=== PATIENT | female | born 1965 | race Caucasian/White ===

== ENCOUNTER 2022-04-28 11:15 | Outpatient (CLI) | payer OTHER, SELFPAY ==
--- NOTE | 2022-04-28 11:30 | CRLHL7_ITS ---
For Patients: As a result of the Century Cures Act, medical imaging exams and procedure reports are released immediately into your electronic medical record. You may view this report before your referring provider. If you have questions, please contact your health care provider. BILATERAL MAMMOGRAM WITH COMPUTER-AIDED DETECTION AND TOMOSYNTHESIS TECHNIQUE: CC and MLO views were obtained. These mammographic images have been obtained using full-field digital technique. These mammographic images were interpreted with the benefit of computer-aided detection. Breast Tomosynthesis was used in this interpretation. COMPARISON FILM: 04/11/2021, 04/08/2020, 02/20/2019. FINDINGS: There are scattered areas of fibroglandular density IMPRESSION: There is no radiographic evidence for malignancy. ASSESSMENT: BI-RADS Category 1: Negative RECOMMENDATION: Routine screening mammogram in 1 year. A lay language report of this examination will be provided to the patient. Elkin Morse M.D. Diagnostic Radiologist [email or web address] GHISLAINE/Dictated by: Elkin Morse MD @ 05/01/2022 8:56:00 AM (Electronically Signed)
== END 2022-04-28 11:16 | disposition home or self-care (01) ==
LOC: MAMMO 11:17
PROVIDERS: PCP Family Medicine; Visit Provider Family Medicine
DX: Z12.31 Encounter for screening mammogram for malignant neoplasm of breast (principal)
CPT/HCPCS: 77063; 77067

== ENCOUNTER 2022-06-13 08:02 | Outpatient (CLI) | payer OTHER, SELFPAY ==
[2022-06-13 14:29] LABS: Ferritin* 82.2 ng/mL (11.1-264.0)
[2022-06-13 14:32] LABS: Chloride* 102 mmol/L (96-114); Potassium* 4.5 mmol/L (3.6-5.1); Sodium* 139 mmol/L (135-149)
[2022-06-13 14:34] LABS: Estimated Glomerular Filt Rate 66 ml/min
[2022-06-13 14:35] LABS: Blood Urea Nitrogen* 11 mg/dL (7-30); Calcium* 9.2 mg/dL (8.4-10.6); Carbon Dioxide* 28 mmol/L (20-32); Glucose* 87 mg/dL (60-115)
== END 2022-06-13 08:03 | disposition home or self-care (01) ==
PROVIDERS: PCP Family Medicine; Visit Provider Family Medicine
DX: Z01.419 Encounter for gynecological examination (general) (routine) without abnormal findings (principal); I10 Essential (primary) hypertension; D75.1 Secondary polycythemia
CPT/HCPCS: 80048; 82728

== ENCOUNTER 2023-05-01 16:15 | Outpatient (CLI) | payer OTHER, SELFPAY ==
--- NOTE | 2023-05-01 14:00 | CRLHL7_ITS ---
For Patients: As a result of the Century Cures Act, medical imaging exams and procedure reports are released immediately into your electronic medical record. You may view this report before your referring provider. If you have questions, please contact your health care provider. BILATERAL SCREENING MAMMOGRAM WITH COMPUTER-AIDED DETECTION AND TOMOSYNTHESIS TECHNIQUE: CC and MLO views were obtained. These mammographic images have been obtained using full-field digital technique. These mammographic images were interpreted with the benefit of computer-aided detection. Breast tomosynthesis was used in this interpretation. COMPARISON FILM: 04/28/22, 04/11/21, 04/08/20. FINDINGS: The breasts are heterogeneously dense, which may obscure small masses. IMPRESSION: There is no radiographic evidence for malignancy. ASSESSMENT: BI-RADS Category 1: Negative RECOMMENDATION: Routine screening mammogram in 1 year. A lay language report of this examination will be provided to the patient. ELKIN MONTELONGO M.D. Diagnostic Radiologist [email or web address] LIAM/sven Transcribed: 05/02/2023, 6:[address]/Dictated by: Elkin Montelongo MD @ 05/02/2023 12:00:00 PM (Electronically Signed)
--- OUTSIDE RECORDS SUMMARY | 2023-05-01 16:17 | XMS_ITS | Continuity of Care Document ---
Author Name Unknown Organization [facility] Address [address] [place] [address] Phone Care Team Providers Care Roustabout Head Name Role Phone Will Kingston JANE Unavailable Unavailabl e Advance Directives Directive Yes / No Effective Date File Name No Information Encounters Encounter Description Practice Location Reason(s) For Visit Diagnoses Date Provider Providers Copied on Encounter [facility], [address] [place] [address] [place], [place], [id number], [place] tel:[phone] [facility] No Information Will Kingston. [address] [facility] [address] [place], [id number], [place]. tel:[phone] Family History Family Member Type Diagnosis Age At Onset No Information Payers Payer name Insurance type Covered green party ID Authoriza tion(s) No Information Social History Type Description Quantity Date Captured Comments Sex Female Smoking Status No Information Chief Complaint And Reason For Visit No Information Reason For Referral Reason For Referral No Information Plan Of Treatment Date Type Action Status No Information History Of Present Illness Encounter Date Complaint History Of Prese nt Illness No Information Functional Status Date Functional Assessmen t No Information Instructions Date Instruction Additional Infor mation No Information Assessments Type Assessment Date No Information Patient Care Teams Name Effective Dates (start - stop) Status Members No Information
== END 2023-05-01 16:16 | disposition home or self-care (01) ==
LOC: MAMMO 16:15
PROVIDERS: PCP Family Medicine; Visit Provider Family Medicine
DX: Z12.31 Encounter for screening mammogram for malignant neoplasm of breast (principal); R92.2 Inconclusive mammogram
CPT/HCPCS: 77063; 77067

== ENCOUNTER 2023-12-07 08:48 | Outpatient (CLI) | payer OTHER, SELFPAY ==
--- OUTSIDE RECORDS SUMMARY | 2023-12-07 08:51 | XMS_ITS | Clinical Summary ---
Author Name Unknown Organization [facility] Address [place], [place] [address] Care Team Providers Care Typing Secretary Name Role Phone Ben Jones MD Primary Care Provider [phone] Social History Tobacco Use Types Packs/Day Years Used Date Smoking Tobacco: Never Assessed Sex and Gender Information Value Date Recorded Sex Assigned at Not on file Gender Identity Not on file Sexual Orientation Not on file Plan of Treatment Not on file Care Teams Typing Secretary Relationship Specialty Start Date End Date Ben Jones MD PCP - General Family Practice 12/25/14
== END 2023-12-07 08:49 | disposition home or self-care (01) ==
PROVIDERS: PCP Family Medicine; Visit Provider Family Medicine
DX: I10 Essential (primary) hypertension (principal)
CPT/HCPCS: 80048

== ENCOUNTER 2024-05-06 13:58 | Outpatient (CLI) | payer OTHER, SELFPAY ==
--- NOTE | 2024-05-06 14:00 | CRLHL7_ITS ---
For Patients: As a result of the Century Cures Act, medical imaging exams and procedure reports are released immediately into your electronic medical record. You may view this report before your referring provider. If you have questions, please contact your health care provider. BILATERAL DIGITAL SCREENING MAMMOGRAM WITH COMPUTER-AIDED DETECTION AND TOMOSYNTHESIS CLINICAL HISTORY: Routine screening exam. COMPARISON: 05/01/2023, 04/28/2022, 04/11/2021. TECHNIQUE: Digital mammogram in CC and MLO projections including computer-aided detection (CAD). Tomosynthesis was used in this interpretation. BREAST COMPOSITION: There are areas of scattered fibroglandular density. FINDINGS: RIGHT Breast: Focal nodular density lateral RIGHT breast 2 cm from the nipple. LEFT Breast: No suspicious findings. IMPRESSION: RIGHT breast asymmetry/mass. RECOMMENDATIONS: Additional mammographic views of the RIGHT breast including 3D spot compression CC/MLO. RIGHT breast ultrasound may also be required. BI-RADS Category 0: Incomplete: Need Additional Imaging Evaluation and/or Prior Mammograms for Comparison The [facility] will contact the patient for follow-up. A lay language report of this examination will be provided to the patient. Dictated by Elkin Morse MD @ 05/07/2024 9:13:43 AM jj/Dictated by: Elkin Morse MD @ 05/07/2024 9:13:00 AM (Electronically Signed)
--- OUTSIDE RECORDS SUMMARY | 2024-05-06 14:00 | XMS_ITS | Encounter Summary ---
Author Organization [facility] Address [address] [place] [address]. [place] [address] Care Team Providers Care Manual Arts Therapy Teacher Name Role Phone Unavailable Primary Care Provider Unavailabl e Reason for Visit * Auth/Cert (Routine) Specialty Diagnoses / Procedures Referred By Yissel sellers Referred To Contact Surgery Diagnoses Abnormal uterine bleeding Abnormal uterine bleeding [N93.9] Procedures HI LAP, SUPRACERVIAL HYSTERECTOMY W/ TUBE&OV, <250G HI LAP, SUPRACERVIAL HYSTERECTOMY W/ TUBE&OV, >250G HI LAP,VAG HYST,UTERUS 250GMS/<,SALP-OOPH HI LAP,VAG HYST,UTERUS >250GMS,SALP-OOPH HI LAPAROSCOPY W TOT HYSTERECTUTERUS <=250 GRAM W TUBE/OVARY HI LAPAROSCOPY TOT HYSTERECTOMY UTERUS >250 GRAM W TUBE/OVARY HI CYSTOURETHROSCOPY ROBOT ASSISTED LAPAROSCOPIC HYSTERECTOMY, UTEROSACRAL LIGAMENT SUSPENSION, BILATERAL OOPHORECTOMY, CYSTOSCOPY [facility] [address] [place] [address] Referral ID Status Reason Start Date Expiration Date Visits Re quested Visits Authorized [id number] 1 1 Encounter Details Date Type Department Care Team (Late st Contact Info) Description 02/01/2024 7:20 AM CDT - 02/01/2024 10:00 AM CDT [facility] [address] [place] [address] [place] [id number] [place], [place] [id number] ROBOT ASSISTED LAPAROSCOPIC HYSTERECTOMY, BILATERAL OOPHORECTOMY, CYSTOSCOPY, REMOVAL OF BILATERAL TUBAL REMNANTS Surgery Details Date/Time Status Location OR Service Patient Class Case Class Case Type Trauma Case? 02/01/24 7:20 AM Posted [facility] OR [facility] OR Gynecology Same Day Surgery Elective Panel 1 Procedure LRB Anes Op Region Wound Class Comments ROBOT ASSISTED LAPAROSCOPIC HYSTERECTOMY, BILATERAL OOPHORECTOMY, CYSTOSCOPY, REMOVAL OF BILATERAL TUBAL REMNANTS Bilateral General Abdomen II-Clean Contami nated UTEROSACRAL LIGAMENT SUSPENSION N/A General Abdomen II-Clean Contaminated Surgeon Surgeon Role Service Panel Sally Smith MD Primary Gynecology 1 Special Needs 120 mins, robot DOCKS ON THE LEFT documented in this encounter Social History Tobacco Use Types Packs/Day Years Used Date Smoking Tobacco: Every Day Cigarettes 0.5 15 Smokeless Tobacco: Never Tobacco Cessation:Ready to Q uit: Not Asked; Counseling Given: Not Answered Alcohol Use Standard Drinks/Week Comments Yes 10 (1 standard drink = 0.6 oz pu re alcohol) 6/week Adolescent Education Answer Date Record ed Getting School Help Needed Not on file 12/17 Sex and Gender Information Value Date Recorded Sex Assigned at Not on file Gender Identity Not on file Sexual Orientation Not on file documented as of this encounter Last Filed Vital Signs Vital Sign Reading Time Taken Comments Blood Pressure 132/78 02/01/2024 6:16 AM CDT Pulse 71 02/01/2024 6:16 AM CDT Temperature 36.8 ??C (98.3 ??F) 02/01/2024 6:16 AM CD T Respiratory Rate 18 02/01/2024 6:16 AM CDT Oxygen Saturation 98% 02/01/2024 6:16 AM CDT Inhaled Oxygen Concentration - - Weight 93 kg (205 lb) 02/01/2024 6:16 AM CDT Height - - Body Mass Index 36.31 12/18/2023 12:22 PM RADIOLOGIC TECH documented in this encounter Discharge Instructions * Attachments The following attachments cannot be sent through Care Everywhere. * Laparoscopic Hysterectomy: Post-op (French) * (s) After Anesthesia (Sleep Medicine) (French) documented in this encounter Medications at Time of Discharge Medication Sig Dispensed Refills Start Date End Date amLODIPine (NORVASC) 5 MG tablet Take 5 mg by mouth daily Flaxseed, Linseed, (FLAX SEED OIL) 1000 MG capsule Take 1 capsule by mouth daily indapamide (LOZOL) 2.5 MG tablet Take 2.5 mg by mouth every morning KRILL OIL PO lactobacillus rhamnosus, GG, (CULTURELL) capsule Take 1 capsule by mouth 2 times daily losartan (COZAAR) 100 MG tablet Take 100 mg by mouth daily multivitamin w/minerals (THERA-VIT-M) tablet Take 1 tablet by mouth daily ondansetron (ZOFRAN ODT) 4 MG ODT tabIndications:Status post laparoscopic hysterectomy Take 1 tablet (4 mg) by mouth every 8 hours as needed for nausea 4 tablet 02/01/2024 oxyCODONE (ROXICODONE) 5 MG tabletIndications:Status post laparoscopic hysterectomy Take 1-2 tablets (5-10 mg) by mouth every 4 hours as needed for moderate to severe pain 6 tablet 02/01/2024 progesterone (PROMETRIUM) 200 MG capsule Take 200 mg by mouth daily senna-docusate (SENOKOT-S/PERICOLACE) 8.6-50 MG tabletIndications:Status post laparoscopic hysterectomy Take 1-2 tablets by mouth 2 times daily 30 tablet 02/01/2024 Turmeric (QC TUMERIC COMPLEX PO) Vitamin D, Cholecalciferol, 10 MCG (400 UNIT) TABS VITAMIN E CAPS 400 IU ORIndications:Diffuse cystic mastopathy 1 tab po qday 0 0 12/07/1999 documented as of this encounter H&P Notes * Sally Smith MD - 02/01/2024 7:16 AM CDT I have reviewed the surgical (or preoperative) H&P that is linked to this encounter, and examined the patient. 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 Pt here for postop follow up from D&C/H for PMB Large submucosal fibroids were found at the time of surgery and I was only able to resect ~35% of the main fibroid. There was another submucosal fibroid more towards the fundus as well that was unable to be reached due to the size of the anterior fibroid. Pt is having daily bleeding, but it is light. Pathology was negative for malignancy. PMH: Past Medical History: Diagnosis Date Constipation Family history of malignant neoplasm of gastrointestinal tract Hypertension PSH: Past Surgical History: Procedure Laterality Date DILATION AND CURETTAGE, OPERATIVE HYSTEROSCOPY, COMBINED N/A 12/18/2023 Procedure: HYSTEROSCOPY DILATION AND CURETTAGE MYOSURE; Surgeon: Sally Smith MD; Location: [facility] OR SALPINGECTOMY WISDOM TOOTH EXTRACTION [facility] C-SEC ONLY,PREV C-SEC 10/22/1988 Social History: Social History Socioeconomic History Marital status: Spouse name: Not on file Number of children: Not on file Years of education: Not on file Highest education level: Not on file Occupational History Not on file Tobacco Use Smoking status: Every Day Current packs/day: 0.50 Average packs/day: 0.5 packs/day for 15.0 years (7.5 ttl pk-yrs) Types: Cigarettes Smokeless tobacco: Never Substance and Sexual Activity Alcohol use: Yes Alcohol/week: 10.0 standard drinks of alcohol Drug use: No Sexual activity: Yes Partners: Male control/protection: Surgical Comment: vasectomy Other Topics Concern Not on file Social History Narrative Not on file Social Determinants of Health Financial Resource Strain: Not on file Food Insecurity: Not on file Transportation Needs: Not on file Physical Activity: Not on file Stress: Not on file Social Connections: Not on file Interpersonal Safety: Not on file Housing Stability: Not on file Medications: No current facility-administered medications for this encounter. Current Outpatient Medications Medication Sig Dispense Refill amLODIPine (NORVASC) 5 MG tablet Take 5 mg by mouth daily Flaxseed, Linseed, (FLAX SEED OIL) 1000 MG capsule Take 1 capsule by mouth daily indapamide (LOZOL) 2.5 MG tablet Take 2.5 mg by mouth every morning KRILL OIL PO lactobacillus rhamnosus, GG, (CULTURELL) capsule Take 1 capsule by mouth 2 times daily losartan (COZAAR) 100 MG tablet Take 100 mg by mouth daily multivitamin w/minerals (THERA-VIT-M) tablet Take 1 tablet by mouth daily progesterone (PROMETRIUM) 200 MG capsule Take 200 mg by mouth daily Turmeric (QC TUMERIC COMPLEX PO) Vitamin D, Cholecalciferol, 10 MCG (400 UNIT) TABS VITAMIN E CAPS 400 IU OR 1 tab po qday 0 0 Allergies: Allergies Allergen Reactions No Known Allergies Review of Systems Negative except what is stated in the HPI Physical exam: There were no vitals taken for this visit. General Appearance: Alert, appropriate appearance for age. No acute distress, HEENT Exam: Grossly normal. Chest/Respiratory Exam: Normal chest wall and respirations. Clear to auscultation. Cardiovascular Exam: Regular rate and rhythm. S1, S2, no murmur, click, gallop, or rubs., Gastrointestinal Exam: soft, non-tender; bowel sounds normal; no masses, no organomegaly Pelvic Exam Female: deferred to OR Musculoskeletal Exam: Back is straight and non-tender, full ROM of upper and lower extremities., Skin: no rash or abnormalities, Neurologic Exam: Normal gait and speech, no tremor Psychiatric Exam: Alert and oriented, appropriate affect. Ultrasound: Uterus: 11.88 cm x 8.39 cm 8.39 x 8.25 cm, MULTIFIBROID UTERUS, APPEAR TO RANGE FROM INTRAMURAL TO SUBSEROSAL Fibroid 1 3.98 cm Fibroid 2 3.90 cm Fibroid 3 2.85 cm Fibroid 4 1.95 cm Fibroid 5 3.84 cm Endometrium: NOT VISUALIZED DUE TO FIBROIDS, UNABLE TO IDENTIFY INTRACAVITY OR SUBMUCOSAL FIBROID LOCATION. HOWEVER, IT'S HIGHLY LIKELY THERE IS SUBMUCOSAL FIBROIDS RIGHT OVARY - NOT SEEN TA OR TV LEFT OVARY - LIMITED VISUALIZATION TA. ASSESSMENT/PLAN: 1. History of uterine fibroid Notes: Patient continues to have bleeding after D&C due to inability to resect submucosal fibroid completely at the time of surgery. Discussed repeating D&C (although there is a high risk we still would not be able to resect theentire fibroid), IUD (which would be difficult to place due to the irregular cavity), and hysterectomy. Pt decided on hysterectomy for definitive management. -Risks and benefits reviewed. Pt aware ofrisk of bleeding, infection, damage to surrounding organs, and possible need for further surgery. She is accepting of these risks. 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 Pt here for postop follow up from D&C/H for PMB Large submucosal fibroids were found at the time of surgery and I was only able to resect ~35% of the main fibroid. There was another submucosal fibroid more towards the fundus as well that was unable to be reached due to the size of the anterior fibroid. Pt is having daily bleeding, but it is light. Pathology was negative for malignancy. PMH: Past Medical History: Diagnosis Date Constipation Family history of malignant neoplasm of gastrointestinal tract Hypertension PSH: Past Surgical History: Procedure Laterality Date DILATION AND CURETTAGE, OPERATIVE HYSTEROSCOPY, COMBINED N/A 12/18/2023 Procedure: HYSTEROSCOPY DILATION AND CURETTAGE MYOSURE; Surgeon: Sally Smith MD; Location: [facility] OR SALPINGECTOMY WISDOM TOOTH EXTRACTION [facility] C-SEC ONLY,PREV C-SEC 10/22/1988 Social History: Social History Socioeconomic History Marital status: Spouse name: Not on file Number of children: Not on file Years of education: Not on file Highest education level: Not on file Occupational History Not on file Tobacco Use Smoking status: Every Day Current packs/day: 0.50 Average packs/day: 0.5 packs/day for 15.0 years (7.5 ttl pk-yrs) Types: Cigarettes Smokeless tobacco: Never Substance and Sexual Activity Alcohol use: Yes Alcohol/week: 10.0 standard drinks of alcohol Drug use: No Sexual activity: Yes Partners: Male control/protection: Surgical Comment: vasectomy Other Topics Concern Not on file Social History Narrative Not on file Social Determinants of Health Financial Resource Strain: Not on file Food Insecurity: Not on file Transportation Needs: Not on file Physical Activity: Not on file Stress: Not on file Social Connections: Not on file Interpersonal Safety: Not on file Housing Stability: Not on file Medications: No current facility-administered medications for this encounter. Current Outpatient Medications Medication Sig Dispense Refill amLODIPine (NORVASC) 5 MG tablet Take 5 mg by mouth daily Flaxseed, Linseed, (FLAX SEED OIL) 1000 MG capsule Take 1 capsule by mouth daily indapamide (LOZOL) 2.5 MG tablet Take 2.5 mg by mouth every morning KRILL OIL PO lactobacillus rhamnosus, GG, (CULTURELL) capsule Take 1 capsule by mouth 2 times daily losartan (COZAAR) 100 MG tablet Take 100 mg by mouth daily multivitamin w/minerals (THERA-VIT-M) tablet Take 1 tablet by mouth daily progesterone (PROMETRIUM) 200 MG capsule Take 200 mg by mouth daily Turmeric (QC TUMERIC COMPLEX PO) Vitamin D, Cholecalciferol, 10 MCG (400 UNIT) TABS VITAMIN E CAPS 400 IU OR 1 tab po qday 0 0 Allergies: Allergies Allergen Reactions No Known Allergies Review of Systems Negative except what is stated in the HPI Physical exam: There were no vitals taken for this visit. General Appearance: Alert, appropriate appearance for age. No acute distress, HEENT Exam: Grossly normal. Chest/Respiratory Exam: Normal chest wall and respirations. Clear to auscultation. Cardiovascular Exam: Regular rate and rhythm. S1, S2, no murmur, click, gallop, or rubs., Gastrointestinal Exam: soft, non-tender; bowel sounds normal; no masses, no organomegaly Pelvic Exam Female: deferred to OR Musculoskeletal Exam: Back is straight and non-tender, full ROM of upper and lower extremities., Skin: no rash or abnormalities, Neurologic Exam: Normal gait and speech, no tremor Psychiatric Exam: Alert and oriented, appropriate affect. Ultrasound: Uterus: 11.88 cm x 8.39 cm 8.39 x 8.25 cm, MULTIFIBROID UTERUS, APPEAR TO RANGE FROM INTRAMURAL TO SUBSEROSAL Fibroid 1 3.98 cm Fibroid 2 3.90 cm Fibroid 3 2.85 cm Fibroid 4 1.95 cm Fibroid 5 3.84 cm Endometrium: NOT VISUALIZED DUE TO FIBROIDS, UNABLE TO IDENTIFY INTRACAVITY OR SUBMUCOSAL FIBROID LOCATION. HOWEVER, IT'S HIGHLY LIKELY THERE IS SUBMUCOSAL FIBROIDS RIGHT OVARY - NOT SEEN TA OR TV LEFT OVARY - LIMITED VISUALIZATION TA. ASSESSMENT/PLAN: 1. History of uterine fibroid Notes: Patient continues to have bleeding after D&C due to inability to resect submucosal fibroid completely at the time of surgery. Discussed repeating D&C (although there is a high risk we still would not be able to resect theentire fibroid), IUD (which would be difficult to place due to the irregular cavity), and hysterectomy. Pt decided on hysterectomy for definitive management. -Risks and benefits reviewed. Pt aware ofrisk of bleeding, infection, damage to surrounding organs, and possible need for further surgery. She is accepting of these risks. Sally Smith DO [facility] documented in this encounter Miscellaneous Notes * Op Note - Sally Smith MD - 02/01/2024 8:05 AM CDT Images from the original note were not included. OPERATIVE REPORT Name: Jody Ha CSN: [id number] Procedure date: 02/01/2024 PRE-OP DIAGNOSIS: 58 yo F with symptomatic fibroid uterus, postmenopausal bleeding POST-OPERATIVE DIAGNOSIS: Same OPERATION: Robotic Assisted Total laparoscopic hysterectomy, bilateral salpingoophorectomy (tubal remnants from prior tubal surgery), uterosacral ligament suspension, cystoscopy DOOR TO DOOR SALESMAN(S): Leadite Man: Eloina Hernandez, LICHA; Smita Raymond RN Relief Scrub: Laekisha Romero Scrub Person: Madlein Fisher Toll Collector: Frances Lopez ANESTHESIA: General ET INTRAVENOUS FLUIDS: see anesthesia record URINE OUTPUT: 500 ML. ESTIMATED BLOOD LOSS: 10 ML. SPECIMENS: Uterus and cervix, bilateral fallopian tube remnants, bilateral ovaries ANTIBIOTICS: Cephazolin 2g IV given prior to skin incision. FINDINGS: EUA - 12cm mobile, firm, fibroid uterus, no adnexal masses LSC - 12cm fibroid uterus, normal adnexa bilaterally, no adhesive disease or endometriosis, normal appendix and intraabdominal anatomy. Cystoscopy - intact bladder, bilateral ureteral orifices seen effluxing urine PROCEDURE The patient was informed of the risks, benefits, and alternatives of the above- mentioned proceduresand the consent was signed and witnessed. The patient was taken to the operating room and placed inthe supine position. General endotracheal anesthesia was achieved without difficulty. The patient was given preoperative prophylactic intravenous antibiotics. The patient was then placed in the dorsal lithotomy position using Junior stirrups. All pressure points were avoided or padded appropriately and a Yann Hugger??? was placed to maintain control of core body temperature. Both arms were tucked in anatomical position at the patient???s side. The patient was then examined, prepped and draped inthe usual sterile fashion. Exam under anesthesia as noted above. A arvizu catheter was introduced into the bladder. A speculum was placed into the vagina and the anterior lip of the cervix grasped with a single tooth tenaculum. A simple 0- Vicryl stitch was placed on the anterior lip of the cervix and the ends threaded through the green cup of the V care. A V care uterine manipulator was introducedinto the uterus. The tenaculum was removed and the puncture sites hemostatic. The speculum was removed from the vagina. Attention was returned to the abdomen where an supraumbilical incision was made to accommodate an 8mm Robot port. A Veress needle was used to enter the abdominal cavity and correct placement was confirmed with the drop test and correct pressure with the insufflation flow. Abdomen was insufflated with CO2 gas. After adequate insufflation was obtained an 8mm trocar was inserted at this position. Atraumatic entry was confirmed, the abdomen was inspected with the findings noted above. The patient was placed into trendelenburg and three more 8mm ports were made to accommodate two robot arms and anassist port. The bowel was swept out of the pelvis and the robot was then docked to the left side of the patient. At this point attention was turned to performance of the hysterectomy. The R round ligament and theR uteroovarian ligament was coagulated and cut, and the broad ligament between them was dissected and cut. At the posterior uterus the broad ligament was skeletonized down to the uterosacral ligament. Anteriorly, the vesicouterine peritoneum was then incised down to the level of the anterior cervix. The bladder flap was then developed on this side by using monopolar cautery and blunt dissection. The uterine vessels on this side were then further skeletonized. They were then cauterized and transected using bipolar forceps and monopolar faith. The cardinal ligament was then dissected out laterally to the cup on the side. Attention was then turned to the L side of the hysterectomy, where the same procedure was performed. Finally, a colpotomy was made by incising circumferentially along the top of the sponge stick using monopolar spatula. The bladder was backfilled during these described steps due to proximity to the enlarged uterus. An gregorio bag was inserted into the abdominal cavity and the uterus was placed inside. The bag was then brought out through the vagina and the uterus was morcellated with a #10 blade until it could be successfully removed from the vagina. The vagina was inspected to ensure no lacerations were present. The bilateral fallopian tubes and ovaries were removed from their attachments using the Vessel sealer. Excellent hemostasis was noted from these sites. The specimens were removed through the vagina with a ring forceps. An 0-V lock suture was passed through the assist port and used to close the cuff in a running fashion. Two stitches were used, each starting at their respective corner and meeting in the middle. The uterosacral ligaments were incorporated into the cuff bilaterally, with appropriate support noted thereafter. We then performed cystoscopy. Avrizu catheter was removed and a 70-degree laparoscope was introducedinto the bladder. An intact bladder was seen and bilateral ureteral jets was demonstrated Skin incisions were closed with 4-0 Monocryl and 20 cc of 0.5% Marcaine was infiltrated. Patient was taken to the recovery room in a stable condition. DO MICHELLE [facility] documented in this encounter Plan of Treatment Not on file documented as of this encounter Procedures Procedure Name Priority Date/Time Associated Diagnosis Comments SURGICAL PATHOLOGY EXAM Routine 02/01/2024 8:32 AM CDT COLPOPEXY, SACROSPINOUS, WITH CYSTOSCOPY 02/01/2024 7:24 AM CDT Abnormal uterine bleeding Special Needs 120 mins, robot DOCKS ON THE LEFT HYSTERECTOMY, TOTAL, ROBOT-ASSISTED, LAPAROSCOPIC, USING DA ROBERTO XI, WITH OOPHORECTOMY, CYSTOSCOPY 02/01/2024 7:24 AM CDT Abnormal uterine bleeding Special Needs 120 mins, robot DOCKS ON THE LEFT TYPE AND SCREEN, ADULT STAT 02/01/2024 6:25 AM CDT ABO/RH TYPE AND SCREEN STAT 02/01/2024 6:25 AM CDT HCG QUALITATIVE URINE STAT 02/01/2024 6:18 AM CDT EKG CARDIAC - HIM SCAN 12/07/2023 12:00 AM RADIOLOGIC TECH documented in this encounter Results * Surgical Pathology Exam (02/01/2024 8:32 AM CDT) Case Report Surgical Pathology Report ? Case: [id number] ? Authorizing Provider: ??Sally Smith MD ? Collected: ? 02/01/2024 08:32 AM ? Ordering Location: ? [facility] ?Received: ?02/01/2024 10:03 AM ? [facility] ? Pathologist: ? Desmond Moses MD ? Specimens: ?? A) - Fallopian Tube, Right, Right Tube Remnant ? B) - Uterus, Cervix, MORCELLATED UTERUS, CERVIX, BILATERAL OVARIES ? 02/04/2024 2:55 PM CDT [facility] Final Diagnosis A) FALLOPIAN TUBE, RIGHT, REMNANT, ROBOT-ASSISTED LAPAROSCOPIC SALPINGECTOMY: -FALLOPIAN TUBE WITH BENIGN PARATUBAL CYST B) UTERUS, CERVIX, BILATERAL OVARIES, ROBOT-ASSISTED LAPAROSCOPIC MORCELLATED HYSTERECTOMY AND BILATERAL OOPHORECTOMY AND LEFT SALPINGECTOMY: -INACTIVE ENDOMETRIUM -LEIOMYOMATA -ADENOMYOSIS -CERVIX, LEFT FALLOPIAN TUBE AND BILATERAL OVARIES ARE WITHOUT DIAGNOSTIC ABNORMALITY 02/04/2024 2:55 PM CDT [facility] Clinical Information Procedure: ROBOT ASSISTED LAPAROSCOPIC HYSTERECTOMY, UTEROSACRAL LIGAMENT SUSPENSION, BILATERAL OOPHORECTOMY, CYSTOSCOPY, REMOVAL OF BILATERAL TUBAL REMNANTS - Bilateral Pre-op Diagnosis: Abnormal uterine bleeding [N93.9] Post-op Diagnosis: N93.9 - Abnormal uterine bleeding [ICD-10-CM] 02/04/2024 2:55 PM CDT [facility] Gross Description A(1). Fallopian Tube, Right, Right Tube Remnant: Received in formalin, labeled with the patient's name and right tube remnant is a 2.2 x 0.5 cm, pink-red, congested, glistening and fimbriated segment of fallopian tube. There is a 0.2 cm, smooth lined paratubal cyst, 0.4 cm from the fimbriated end. No excrescences are identified and the fallopian tube has an unremarkable cut surface. RS-1C B(2). Uterus, Cervix, MORCELLATED UTERUS, CERVIX, BILATERAL OVARIES: Received unfixed labeled with the patient's name and morcellated uterus, cervix, bilateral ovaries, is a 325 g, 15.6 x 10.7 x 6.5 cm aggregate of a diffusely disrupted and fragmented/morcel lated uterine corpus and cervix. The orientation of the specimen is indeterminant. There are accompanying, bilateral ovaries and a 2.2 x 0.5 cm, fimbriated segment of fallopian tube. The fallopian tube is presumed to be the left side and has its correlating, attached ovary. The ectocervix is white-pink, smooth and glistening and opening displays a laughlin-pink, glistening and grossly unremarkable endocervical canal. The size of the endometrial cavity is indeterminate with the intact portions displaying a laughlin-pink, mottled and glistening endometrium ranging from an attenuated less than 0.1 cm to 0.2 cm in thickness. The attenuated areas are overlying submucosal, white, rubbery and whorled nodules. No endometrial excrescences, polyps or indurated lesions are identified. The myometrium averages 3.4 cm in thickness and displays multiple, 0.2 cm to 4.8 cm, submucosal, intramural and subserosal, white, rubbery and whorled nodules. No indurated lesions or suspicious areas of hemorrhagic necrosis are identified. The remaining myometrium is laughlin-pink, finely trabeculated and grossly unremarkable. The serosa is laughlin-pink to red, congested and glistening. The left fallopian tube has a grossly unremarkable cut surface. The ovaries average 2.8 x 1.6 x 1.1 cm and have a mottled white-pink to yellow-red cut surface. No suspicious nodular lesions are identified. RS-12 C Summary of cassettes 1-2 cervix 3-5 endomyometrium 6-9 myometrial nodules and serosa 10 right ovary 11 left fallopian tube 12 left ovary BENSON Peters 02/04/2024 2:55 PM CDT [facility] Microscopic Description Performed 02/04/2024 2:55 PM T [facility] Performing Labs The technical component of this testing was completed at [facility] 02/04/2024 2:55 PM T [facility] Case Images 02/04/2024 2:55 PM CDT [facility] Tissue STRUCTURE OF RIGHT FALLOPIAN TUBE / Unknown 02/01/2024 8:32 AM CDT 02/01/2024 10:03 AM CDT Tissue specimen (specimen) UTERUS AND CERVIX, CS / Unknown 02/01/2024 9:41 AM CDT 02/01/2024 10:03 AM CDT Sally WORTHINGTON - BALJIT GARCIA [facility] [address] [place] [address], [facility] * Adult Type and Screen (02/01/2024 6:25 AM CDT) ABO/RH(D) A POS 02/01/2024 6:14 AM CDT [facility] Antibody Screen Negative Negative 02/01/2024 6:14 AM CDT [facility] SPECIMEN EXPIRATION DATE [id number] 02/01/2024 6:14 AM CDT [facility] Blood STRUCTURE OF RIGHT UPPER LIMB / Unknown Venipuncture / Unknown 02/01/2024 6:25 AM CDT 02/01/2024 6:30 AM CDT Sally Smith MD LAB - BLOOD BANK PRESTON T ORDER Performing Organization Address [facility] de Phone Number [facility] [address], [place] [id number] [place] [address] * HCG qualitative urine (02/01/2024 6:18 AM CDT) hCG Urine Qualitative Negative Negative ENMANUEL 02/01/2024 6:34 AM CDT [facility] Comment:This test is for scr eening purposes. Results should be interpreted along with the clinical picture. Confirmation testing is available if warranted by ordering [id number], HCG Quantitative . Urine MID-STREAM URINE SPECIMEN / Unknown Non-blood Collection / Unknown 02/01/2024 6:18 AM CDT 02/01/2024 6:20 AM CDT Sally Smith MD LAB - URINE ORDERABL ES Performing Organization Address [facility] Co de Phone Number [facility] [address] [phone], [facility] * EKG Cardiac - HIM Scan (12/07/2023 12:00 AM RADIOLOGIC TECH) 12/07/2023 Provider Outside ECG ORDERABLES documented in this encounter Visit Diagnoses Diagnosis Status post laparoscopic hysterectomy- Primary Acquired absence of both cervix and uterus Abnormal uterine bleeding Unspecified disorder of menstruation and other abnormal bleeding from female genital tract documented in this encounter Administered Medications Inactive Administered Medications - up to 3 most recent administrations Medication Order MAR Action Action Date Dose Rate Site acetaminophen (TYLENOL) tablet 975 mg 975 mg, Oral, ONCE, On Sun02/01/24 at 0630, For 1 dose, Maximum acetaminophen dose from all sources = 75 mg/kg/day not to exceed 4 grams/day., Pre-procedure $Given 02/01/2024 7:06 AM CDT 975 mg BUPivacaine (MARCAINE) 0.25 % injection PRN, Starting on Sun02/01/24 at 1014, Intra-procedure $Given 02/01/2024 10:14 AM CDT 30 mLs Operative Site/Surgical Site fentaNYL (PF) (SUBLIMAZE) injection 25 mcg 25 mcg, Intravenous, EVERY 5 MIN PRN, moderate pain, Give fentaNYL (SUBLIMAZE) first if HYDROmorphone (DILAUDID) also ordered., Starting on Sun02/01/24 at 1031, Administer fentaNYL (SUBLIMAZE) for acute pain control. Move to HYDROmorphone (DILAUDID): - IF patient has received up to 200 mcg of fentaNYL (SUBLIMAZE) OR - IF patient has received 2 doses of fentaNYL (SUBLIMAZE) AND continues to have pain score greater than or equal to six (6) or is unable to participate in post op recovery due to pain. Wait 5 minutes AFTER last fentaNYL (SUBLIMAZE) dose before administering HYDROmorphone (DILADUDID). Postop Anesthesia Phase I only. Notify Provider to assess for uncontrolled pain or analgesic side effects. DO NOT revert back to fentanyl (SUBLIMAZE) after administering HYDROmorphone (DILAUDID)., PACU $Given 02/01/2024 11:25 AM CDT 25 mcg $Given 02/01/2024 10:52 AM CDT 25 mcg fentaNYL (PF) (SUBLIMAZE) injection 50 mcg 50 mcg, Intravenous, EVERY 5 MIN PRN, severe pain, Give fentaNYL (SUBLIMAZE) first if HYDROmorphone (DILAUDID) also ordered., Starting on Sun02/01/24 at 1031, Administer fentaNYL (SUBLIMAZE) for acute pain control. Move to HYDROmorphone (DILAUDID): - IF patient has received up to 200 mcg of fentaNYL (SUBLIMAZE), OR - IF patient has received 2 doses of fentaNYL (SUBLIMAZE) AND continues to have severe pain (pain score greater than or equal to seven (7) or is unable to participate in post op recovery due to pain. Wait 5 minutes AFTER last fentaNYL (SUBLIMAZE) dose before administering HYDROmorphone (DILADUDID). Postop Anesthesia Phase I only. Notify Provider to assess for uncontrolled pain or analgesic side effects. DO NOT revert back to fentanyl (SUBLIMAZE) after administering HYDROmorphone (DILAUDID)., PACU $Given 02/01/2024 10:41 AM CDT 50 mcg heparin ANTICOAGULANT injection 5,000 Units 5,000 Units, Subcutaneous, PRE-OP/PRE-PROCEDURE, Starting on Sun02/01/24 at 0613, For 1 dose, Verify order with Web Content Producer provider prior to Administering. High concentration heparin. Not for line flush or cath care., Pre-procedure $Given 02/01/2024 7:06 AM CDT 5,000 Units Abdominal Tissue lactated ringers (bag) irrigation SOLN PRN, Starting on Sun02/01/24 at 0930, Intra-procedure $Given 02/01/2024 9:30 AM CDT 150 mLs lactated ringers infusion at 100 mL/hr, Intravenous, CONTINUOUS, Pre-procedure, Starting on Sun02/01/24 at 0630, Until Sun02/01/24 at 1028 $New Bag 02/01/2024 10:07 AM CDT $New Bag 02/01/2024 6:58 AM CDT 100 mL/hr lactated ringers infusion at 100 mL/hr, Intravenous, CONTINUOUS, Continue until IV catheter is weaned, PACU, Starting on Sun02/01/24 at 1100, Until Sun02/01/24 at 1215 Rate/Dose Verify 02/01/2024 10:31 AM CDT 100 mL/hr magnesium sulfate 4 g in 50 mL sterile water intermittent infusion 4 g, Intravenous, Administer over 240 Minutes, at 12.5 mL/hr, ONCE, On Sun02/01/24 at 0630, For 1 dose, Initiate in pre-op and continue infusion throughout intra-op and post-op for optimal pain management. If patient is ready for discharge, may discontinue infusion. Do NOT delay discharge to reach 4 gram maximum dose if patient meets PACU discharge., Pre-procedure $New Bag 02/01/2024 7:07 AM CDT 4 g 12.5 mL/hr oxyCODONE (ROXICODONE) tablet 5 mg 5 mg, Oral, ONCE PRN, other, pain control or improvement in physical function.??, Starting on Sun02/01/24 at 1222, For 1 dose, Hold oral PRN dose for analgesic side effects. Notify provider to assess for uncontrolled pain or analgesic side effects. Hold while on IV EDUCATION FACULTY MEMBER or with regular IV opioid dosing. $Given 02/01/2024 12:48 PM CDT 5 mg phenazopyridine (PYRIDIUM) tablet 200 mg 200 mg, Oral, ONCE, On Sun02/01/24 at 0630, For 1 dose, Give in preop holding room with small sip of water., Pre-procedure $Given 02/01/2024 7:06 AM CDT 200 mg sodium chloride (PF) 0.9% PF flush 3 mL 3 mL, Intracatheter, EVERY 8 HOURS, First dose on Sun02/01/24 at 0630, to lock peripheral IV dormant line, Pre-procedure $Given 02/01/2024 6:58 AM CDT 3 mLs sterile water (bottle) irrigation PRN, Intra-procedure, Starting on Sun02/01/24 at 0835, Until Sun02/01/24 at 1028 $Given 02/01/2024 8:35 AM CDT 100 mLs sterile water (bottle) irrigation PRN, Intra-procedure, Starting on Sun02/01/24 at 1000, Until Sun02/01/24 at 1028 $Given 02/01/2024 10:00 AM CDT 200 mLs documented in this encounter Active and Recently Administered Medications Times are shown in CDT. Scheduled Medication Order 01/30/2024 01/31/2024 02/01/2024 acetaminophen (TYLENOL) tablet 975 mg (COMPLETED) 975 mg, Oral, ONCE, On Sun02/01/24 at 0630, For 1 dose, Maximum acetaminophen dose from all sources = 75 mg/kg/day not to exceed 4 grams/day., Pre-procedure 705 ($Given - Provi chaparro: Moni Rodriguez RN) acetaminophen (TYLENOL) tablet 975 mg 975 mg, Oral, ONCE, On Sun02/01/24 at 1830, For 1 dose, Administer 6 hours after pre-op dose, if given. Maximum acetaminophen dose from all sources = 75 mg/kg/day not to exceed 4 grams/day. ceFAZolin Sodium (ANCEF) injection 2 g (COMPLETED) Routine, 2 g, Intravenous, PRE-OP/PRE-PROCEDURE, Starting on Sun02/01/24 at 0613, For 1 dose, Give first dose within 1 hour PRIOR to incision. If patient weight is greater than or equal to 120 kg increase dose to 3 g., Indications: Perioperative Pharmacoprophylaxis, Pre-procedure 0724 ($Given - Provi chaparro: Beto Delgado APRN CRNA)0730 ($Given - Provider: Beto Delgado APRN CRNA) heparin ANTICOAGULANT injection 5,000 Units (COMPLETED) 5,000 Units, Subcutaneous, PRE-OP/PRE-PROCEDURE, Starting on Sun02/01/24 at 0613, For 1 dose, Verify order with Web Content Producer provider prior to Administering. High concentration heparin. Not for line flush or cath care., Pre-procedure 07 ($Given - Provi chaparro: Moni Rodriguez RN - Comment: ok to give per TOLU Castillo) ibuprofen (ADVIL/MOTRIN) tablet 800 mg 800 mg, Oral, ONCE, On Sun02/01/24 at 1830, For 1 dose, Administer when patient tolerating oral intake AND 6 hours after last ketorolac (TORADOL) dose, if given. magnesium sulfate 4 g in 50 mL sterile water intermittent infusion (COMPLETED) 4 g, Intravenous, Administer over 240 Minutes, at 12.5 mL/hr, ONCE, On Sun02/01/24 at 0630, For 1 dose, Initiate in pre-op and continue infusion throughout intra-op and post-op for optimal pain management. If patient is ready for discharge, may discontinue infusion. Do NOT delay discharge to reach 4 gram maximum dose if patient meets PACU discharge., Pre-procedure 07 ($New Bag - Pro vider: Moni Rodriguez RN) phenazopyridine (PYRIDIUM) tablet 200 mg (COMPLETED) 200 mg, Oral, ONCE, On Sun02/01/24 at 0630, For 1 dose, Give in preop holding room with small sip of water., Pre-procedure 0706 ($Given - Provi chaparro: Moni Rodriguez RN) sodium chloride (PF) 0.9% PF flush 3 mL (CANCELED) 3 mL, Intracatheter, EVERY 8 HOURS, First dose on Sun02/01/24 at 0630, to lock peripheral IV dormant line, Pre-procedure 0658 ($Given - Provi chaparro: Moni Rodriguez RN) Continuous Medication Order 01/30/2024 01/31/2024 02/01/2024 lactated ringers infusion (CANCELED) at 100 mL/hr, Intravenous, CONTINUOUS, Pre-procedure, Starting on Sun02/01/24 at 0630, Until Sun02/01/24 at 1028 0658 ($New Bag - Pro vider: Moni Rodriguez RN)1006 (Paused - Provider: Beto Delgado APRN STAVE LOG RIPSAW OPERATOR - Comment: Switch to gravity)1007 ($New Bag - Provider: Beto Delgado APRN STAVE LOG RIPSAW OPERATOR) lactated ringers infusion (CANCELED) at 100 mL/hr, Intravenous, CONTINUOUS, Continue until IV catheter is weaned, PACU, Starting on Sun02/01/24 at 1100, Until Sun02/01/24 at 1215 1031 (Rate/Dose Veri fy - Provider: Kel Aparicio RN) PRN Medication Order 01/30/2024 01/31/2024 02/01/2024 BUPivacaine (MARCAINE) 0.25 % injection (CANCELED) PRN, Starting on Sun02/01/24 at 1014, Intra-procedure 1014 ($Given - Provi chaparro: Sally Smith MD - Comment: INJECTION) fentaNYL (PF) (SUBLIMAZE) injection 25 mcg (CANCELED) 25 mcg, Intravenous, EVERY 5 MIN PRN, moderate pain, Give fentaNYL (SUBLIMAZE) first if HYDROmorphone (DILAUDID) also ordered., Starting on Sun02/01/24 at 1031, Administer fentaNYL (SUBLIMAZE) for acute pain control. Move to HYDROmorphone (DILAUDID): - IF patient has received up to 200 mcg of fentaNYL (SUBLIMAZE) OR - IF patient has received 2 doses of fentaNYL (SUBLIMAZE) AND continues to have pain score greater than or equal to six (6) or is unable to participate in post op recovery due to pain. Wait 5 minutes AFTER last fentaNYL (SUBLIMAZE) dose before administering HYDROmorphone (DILADUDID). Postop Anesthesia Phase I only. Notify Provider to assess for uncontrolled pain or analgesic side effects. DO NOT revert back to fentanyl (SUBLIMAZE) after administering HYDROmorphone (DILAUDID)., PACU 1052 ($Given - Provi chaparro: Kel Aparicio RN)1125 ($Given - Provider: Bella Ngo RN) fentaNYL (PF) (SUBLIMAZE) injection 50 mcg (CANCELED) 50 mcg, Intravenous, EVERY 5 MIN PRN, severe pain, Give fentaNYL (SUBLIMAZE) first if HYDROmorphone (DILAUDID) also ordered., Starting on Sun02/01/24 at 1031, Administer fentaNYL (SUBLIMAZE) for acute pain control. Move to HYDROmorphone (DILAUDID): - IF patient has received up to 200 mcg of fentaNYL (SUBLIMAZE), OR - IF patient has received 2 doses of fentaNYL (SUBLIMAZE) AND continues to have severe pain (pain score greater than or equal to seven (7) or is unable to participate in post op recovery due to pain. Wait 5 minutes AFTER last fentaNYL (SUBLIMAZE) dose before administering HYDROmorphone (DILADUDID). Postop Anesthesia Phase I only. Notify Provider to assess for uncontrolled pain or analgesic side effects. DO NOT revert back to fentanyl (SUBLIMAZE) after administering HYDROmorphone (DILAUDID)., PACU 1041 ($Given - Provi chaparro: Kel Aparicio RN) lactated ringers (bag) irrigation SOLN (CANCELED) PRN, Starting on Sun02/01/24 at 0930, Intra-procedure 0930 ($Given - Provi chaparro: Sally Smith MD) oxyCODONE (ROXICODONE) tablet 5 mg (COMPLETED) 5 mg, Oral, ONCE PRN, other, pain control or improvement in physical function.??, Starting on Sun02/01/24 at 1222, For 1 dose, Hold oral PRN dose for analgesic side effects. Notify provider to assess for uncontrolled pain or analgesic side effects. Hold while on IV EDUCATION FACULTY MEMBER or with regular IV opioid dosing. 1248 ($Given - Provi chaparro: Sandy Silva RN) sterile water (bottle) irrigation (CANCELED) PRN, Intra-procedure, Starting on Sun02/01/24 at 0835, Until Sun02/01/24 at 1028 0835 ($Given - Provi chaparro: Sally Smith MD - Comment: Instilled into bladder) sterile water (bottle) irrigation (CANCELED) PRN, Intra-procedure, Starting on Sun02/01/24 at 1000, Until Sun02/01/24 at 1028 1000 ($Given - Provi chaparro: Sally Smith MD - Comment: CYSTO) documented in this encounter
--- OUTSIDE RECORDS SUMMARY | 2024-05-06 14:00 | XMS_ITS | Referral Summary ---
Author Organization [facility] Address [address] [place] [address]. [place] [address] Care Team Providers Care Wearing Apparel Shaker Name Role Phone Unavailable Primary Care Provider Unavailabl e Allergies Active Allergy Reactions Criticality Noted Date Comments No Known Allergies 08/04/1999 Medications Medication Sig Dispensed Refills Start Date End Date Status VITAMIN E CAPS 400 IU ORIndications:Diffuse cystic mastopathy 1 tab po qday 0 0 12/07/1999 Active Flaxseed, Linseed, (FLAX SEED OIL) 1000 MG capsule Take 1 capsule by mouth daily Active KRILL OIL PO Active lactobacillus rhamnosus, GG, (CULTURELL) capsule Take 1 capsule by mouth 2 times daily Active multivitamin w/minerals (THERA-VIT-M) tablet Take 1 tablet by mouth daily Active losartan (COZAAR) 100 MG tablet Take 100 mg by mouth daily Active amLODIPine (NORVASC) 5 MG tablet Take 5 mg by mouth daily Active indapamide (LOZOL) 2.5 MG tablet Take 2.5 mg by mouth every morning Active Vitamin D, Cholecalciferol, 10 MCG (400 UNIT) TABS Activ e Turmeric (QC TUMERIC COMPLEX PO) Active progesterone (PROMETRIUM) 200 MG capsule Take 200 mg by mouth daily Active oxyCODONE (ROXICODONE) 5 MG tabletIndications:Sta tus post laparoscopic hysterectomy Take 1-2 tablets (5-10 mg) by mouth every 4 hours as needed for moderate to severe pain 6 tablet 02/01/2024 Active senna-docusate (SENOKOT-S/PERICOLACE ) 8.6-50 MG tabletIndications:Sta tus post laparoscopic hysterectomy Take 1-2 tablets by mouth 2 times daily 30 tablet 02/01/2024 Active ondansetron (ZOFRAN ODT) 4 MG ODT tabIndications:Status post laparoscopic hysterectomy Take 1 tablet (4 mg) by mouth every 8 hours as needed for nausea 4 tablet 02/01/2024 Active Active Problems Problem Noted Date Diagnosed Date Family history of malignant neoplasm of gastrointestinal tract Diffuse cystic mastopathy Immunizations Name Administration Dates Next Due TD,PF 7+ (Tenivac) 04/23/1995 Social History Tobacco Use Types Packs/Day Years [...] on file Sexual Orientation Not on file Last Filed Vital Signs Vital Sign Reading Time Taken Comments Blood Pressure 139/82 02/01/2024 1:00 PM CDT Pulse 68 02/01/2024 1:00 PM CDT Temperature 36.3 ??C (97.4 ??F) 02/01/2024 12:30 PM C DT Respiratory Rate 16 02/01/2024 1:00 PM CDT Oxygen Saturation 94% 02/01/2024 1:00 PM CDT Inhaled Oxygen Concentration - - Weight 93 kg (205 lb) 02/01/2024 6:16 AM CDT Height 160 cm (5' 3) 12/18/2023 12:22 PM BUSINESS LIBRARIAN Body Mass Index 36.31 12/18/2023 12:22 PM BUSINESS LIBRARIAN Plan of Treatment Not on file Procedures Procedure Name Priority Date/Time Associated Diagnosis Comments HCL PAP SMEAR Routine 12/08/1999 1:00 PM BUSINESS LIBRARIAN Gynecologic Examination from Last 3 Months or Most Recently Relevant to Health Maintenance Results * PAP SMEAR (12/08/1999 1:00 PM BUSINESS LIBRARIAN) Unlabelled DNR [facility] Source DNR [facility] [place] [id number] [facility] Clinical [facility] DNR [facility] Therapy DNR [facility] Last Pap Diagnosis WITHIN NORMAL LIMITS [facility] PAP Date [id number] [facility] Prev Bx Dx DNR [facility] Prev Bx Date DNR [facility] Addl Hx Info [facility] Statement of Adequacy [facility] Comment: SATISFACTORY FOR INTERPRETATION ENDOCERVICAL COMPONENT (COLUMNAR AND/OR METAPLASTIC) IS PRESENT General Categorization DNR [facility] Descriptive Diagnosis [facility] Comment:WITHIN NORMAL LIMITS Recommendations DNR [facility] DNR 125,,,,,, [facility] DNR DNR [facility] DNR DNR [facility] DNR DNR [facility] . [facility] Comment: ?PAP SMEARS ARE SUBJECT TO BOTH FALSE NEGATIVE AND FALSE ? POSITIVE RESULTS EVIDENCED BY DATA PUBLISHED IN THE ? MEDICAL LITERATURE. ??YOUR PATIENT'S RESULT SHOULD BE ? INTERPRETED IN THIS CONTEXT, TOGETHER WITH THE PATIENT'S ? HISTORY AND CLINICAL FINDINGS. TESTING LOCATION ? [facility] ? [address] [place] [address]. [id number] ? PHONE NUMBERS FOR CYTOLOGY INQUIRES, INCLUDING SLIDE REQUESTS ? EXT. [id number] ?? EXT. [phone] 12/07/1999 Leah Chapa MD LABORATORY [facility] from Last 3 Months or Most Recently Relevant to Health Maintenance Jody Ha Personal/Family Self 1965 [address] [place] [id number]
--- OUTSIDE RECORDS SUMMARY | 2024-05-06 14:00 | XMS_ITS | Clinical Summary ---
Author Organization [facility] Address [address] [place] [address]. [place] [address] Care Team Providers Care Glass Calibrator Name Role Phone Unavailable Primary Care Provider [...] Dates Next Due TD,PF 7+ (Tenivac) 04/23/1995 Family History Medical History Relation Comments Cancer Mother Relation Status Comments Mother Social History Tobacco Use Types Packs/Day Years [...] 160 cm (5' 3) 12/18/2023 12:22 PM DESIGN INSERTER Body Mass Index 36.31 12/18/2023 12:22 PM DESIGN INSERTER Plan of Treatment Health Maintenance Due Date Last Done Comments ADVANCE CARE PLANNING 1965 ANNUAL REVIEW OF HM ORDERS 1965 CT COLONOGRAPHY 1965 FIT 1965 FLEX SIG 1965 GLUCOSE 1965 MAMMO SCREENING 1965 NICOTINE/TOBACCO CESSATION COUNSELING Q 1 YR 1965 sDNA (Cologuard) 1965 COLONOSCOPY 1975 COLORECTAL CANCER SCREENING 1975 HIV SCREENING 1980 HEPATITIS C SCREENING 1983 HEPATITIS B IMMUNIZATION (1 of 3 - 19+ 3-dose series) 1984 YEARLY PREVENTIVE VISIT 12/07/2000 12/07/1999 PAP 12/08/2002 12/08/1999 LIPID 2005 LUNG CANCER SCREENING 2015 Pneumococcal Vaccine: Pediatrics (0 to 5 Years) and At-Risk Patients (6 to 64 Years) (2 of 2 - PCV) 07/15/2016 07/15/2015 COVID-19 Vaccine (3 - Pfizer risk series) 03/22/2021 02/22/2021, 02/01/2021 PHQ-2 (once per calendar year) 2023 INFLUENZA VACCINE (#1) 2024 3, 08/04/2022, 08/26/2021, Additional history exists DTAP/TDAP/TD IMMUNIZATION (3 - Td or Tdap) 05/19/2030 05/19/2020, 07/08/2013, 04/23/1995 ZOSTER IMMUNIZATION Completed 12/12/2021, 1 HPV IMMUNIZATION Aged Out No longer e ligible based on patient's age to complete this topic IPV IMMUNIZATION Aged Out No longer e ligible based on patient's age to complete this topic MENINGITIS IMMUNIZATION Aged Out No l onger eligible based on patient's age to complete this topic RSV MONOCLONAL ANTIBODY Aged Out No l onger eligible based on patient's age to complete this topic Procedures Procedure Name Priority Date/Time Associated Diagnosis Comments HCL PAP SMEAR Routine 12/08/1999 1:00 PM DESIGN INSERTER Gynecologic Examination from Last 3 Months or Most Recently Relevant to Health Maintenance Results * PAP SMEAR (12/08/1999 1:00 PM DESIGN INSERTER) Unlabelled DNR [facility] Source DNR [facility] LMP [id number] [facility] Clinical History DNR [facility] Therapy DNR [facility] Last Pap Diagnosis WITHIN NORMAL LIMITS [facility] PAP Date [id number] [facility] Prev Bx Dx DNR [facility] Prev Bx Date DNR [facility] Addl Hx Info [facility] Statement of Adequacy [facility] Comment: SATISFACTORY FOR INTERPRETATION ENDOCERVICAL COMPONENT (COLUMNAR AND/OR METAPLASTIC) IS PRESENT General Categorization DNR [facility] Descriptive Diagnosis [facility] Comment:WITHIN NORMAL LIMITS Recommendations DNR [facility] DNR 125,,,,,, [facility] DNR DNR [facility] DNR DNR [facility] DNR DNR [facility] . [facility] Comment: ?PAP SMEARS ARE SUBJECT TO BOTH FALSE NEGATIVE AND FALSE ? POSITIVE RESULTS EVIDENCED BY DATA PUBLISHED IN THE ? MEDICAL LITERATURE. ??YOUR PATIENT'S RESULT SHOULD BE ? INTERPRETED IN THIS CONTEXT, TOGETHER WITH THE PATIENT'S ? HISTORY AND CLINICAL FINDINGS. TESTING LOCATION ? [facility] ? [address] [facility]. [id number] ? PHONE NUMBERS FOR CYTOLOGY INQUIRES, INCLUDING SLIDE REQUESTS ? EXT. [id number] ?? EXT. [id number] 12/07/1999 Leah Chapa MD LABORATORY Performing Organization Address City/State/[facility] Co or Phone Number [facility] from Last 3 Months or Most Recently Relevant to Health Maintenance Jody Ha Personal/Family Self 1965 [address] [place] [address]
--- OUTSIDE RECORDS SUMMARY | 2024-05-06 14:01 | XMS_ITS | Clinical Summary ---
Author Organization [employer] [facility] Address [place], [place] [address] Care Team Providers Care Coding Analyst Name Role Phone Ben Jones MD Primary Care Provider [phone] Social History Tobacco Use Types Packs/Day Years Used Date Smoking Tobacco: Never Assessed Sex and Gender Information Value Date Recorded Sex Assigned at Not on file Gender Identity Not on file Sexual Orientation Not on file Plan of Treatment Not on file Care Teams Coding Analyst Relationship Specialty Start Date End Date Ben Jones MD PCP - General Family Practice 12/25/14
--- OUTSIDE RECORDS SUMMARY | 2024-05-06 14:01 | XMS_ITS | Patient Health Record ---
Author Organization [facility] Address [address] [place] [id number] Care Team Providers Care Dietetics Director Name Role Phone Tan Pinto Primary Care Provider Eul, Sally Unavailable [phone] Allergies No Known Allergies Results Component Value Reference Range Notes FSH (IH) (Not yet reviewed b y provider) Interpretation: Performing Lab: Notes/Report: Access 2 ([id number]), [place] - Lab Testosterone, Total (IH) (No t yet reviewed by provider) Interpretation: Performing Lab: Notes/Report: Access 2 ([id number]), [place] - Lab Sensitive Estradiol (IH) (No t yet reviewed by provider) Interpretation: Performing Lab: Notes/Report: Access 2 ([id number]), [place] - Lab Sensitive Estradiol (IH) Reviewed date:11/15/2023 03:29:35 PM Interpretation: Performing Lab: Notes/Report: Access 2 ([id number]), Access 2 [facility] Testosterone, Total (IH) Reviewed date:11/15/2023 03:29:35 PM Interpretation: Performing Lab: Notes/Report: Access 2 ([id number]), Access 2 [facility] FSH (IH) Reviewed date:11/15/2023 03:29:35 PM Interpretation: Performing Lab: Notes/Report: Access 2 ([id number]), Access 2 [facility] TESTOSTERONE, TOTAL, LC/MS/M S Reviewed date:08/04/2023 07:59:23 PM Interpretation: Performing Lab:Z3E, [facility] [address], [address], VcrvsfnyeuBC[address] Robert Tapia MD Notes/Report: 0; 0; 0 TESTOSTERONE, TOTAL, MS 140 2-45 ng/dL [phone] https://education.Joshfire/faq/TotalTestosteroneLCMSMS pursuant to the CLIA regulations and is used for clinical purposes. (Note) For additional information, please refer to MDF characteristics have been determined by [employer]fusion. It has not Robert Tapia MD [facility] [address] med fusion been cleared or approved by the FDA. This assay has been validated (This link is being provided for informational/educational purposes only.) [address] [address],[address] This test was developed and its analytical performance FSH Reviewed date:08/04/2023 07:59:23 PM Interpretation: Performing Lab:[facility]Ex[address] [facility], Rolly FlemingJiauVC[address] Ace Negron Notes/Report: 0; 0; 0 FSH 31.2 Follicular Phase 2.5-10.2 Postmenopausal 23.0-116.3 Luteal Phase 1.5- 9.1 Reference Range Mid-cycle Peak 3.1-17.7 ESTRADIOL Reviewed date:08/04/2023 07:59:23 PM Interpretation: Performing Lab:[place]ine [facility]WIN-Exosect[address] [facility] Center[facility]DIA, PersistIQIrkbHF[address] Ace Ne[facility]on Notes/Report: 0; 0; 0 ESTRADIOL 58 elevated estradiol test results leading to an [employer] order code [id number], pre-pubertal children and hypogonadal/post-menopausal Please note: patients being treated with the drug measurement. The cross reactivity could lead to falsely Reference range established on post-pubertal patient Postmenopausal: < or = 31 Follicular Phase: 19-144 reactivity with fulvestrant. Estradiol, Ultrasensitive, LCMSMS assay is recommended Reference Range Luteal Phase: 56-214 whom low Estradiol levels are anticipated (e.g. males, established using this assay. For any patients for interference in immunoassay methods for estradiol inappropriate clinical assessment of estrogen status. Ultrasensitive LC/MS/MS demonstrates negligible cross females), the [facility] [facility] fulvestrant (Faslodex(R)) have demonstrated significant Mid-Cycle: 64-357 population. No pre-pubertal reference range (order code 06799). Sensitive Estradiol (IH) Reviewed date:02/08/2024 01:16:42 PM Interpretation: Performing Lab: Notes/Report: Access 2 ([id number]), [place] Testosterone, Total (IH) Reviewed date:02/08/2024 01:16:42 PM Interpretation: Performing Lab: Notes/Report: Access 2 ([id number]), [place] FSH (IH) Reviewed date:02/08/2024 01:16:42 PM Interpretation: Performing Lab: Notes/Report: Access 2 ([id number]), [place] TESTOSTERONE, TOTAL, LC/MS/M S Reviewed date:05/14/2023 01:35:29 PM Interpretation: Performing Lab:[place] [facility]-[address] [address], [address], PjaixxwtabLR[address] Robert Tapia MD Notes/Report: TESTOSTERONE, TOTAL, MS 109 2-45 ng/dL For additional information, please refer to (Note) pursuant to the CLIA regulations and is used for clinical purposes. been cleared or approved by the FDA. This assay has been validated [phone] med [employer] [facility] https://education.[employer] Systemscom/faq/TotalTestosteroneLCMSMS [facility] [address] (This link is being provided for informational/educational purposes only.) Pavan Guaman MD This test was developed and its analytical performance [address] [address],[address] characteristics have been determined by [employer]. It has not FSH Reviewed date:05/14/2023 01:35:29 PM Interpretation: Performing Lab:Marine GOODWIN [facility], Rolly FlemingJvudGE[address] Ace Negron Notes/Report: FSH 48.9 Postmenopausal 23.0-116.3 Reference Range Follicular Phase 2.5-10.2 Luteal Phase 1.5- 9.1 Mid-cycle Peak 3.1-17.7 ESTRADIOL Reviewed date:05/14/2023 01:35:29 PM Interpretation: Performing Lab:Marine GOODWIN-[address], Rolly FlemingIcfmLA[address] Ace Negron Notes/Report: ESTRADIOL 51 population. No pre-pubertal reference range Ultrasensitive LC/MS/MS demonstrates negligible cross Follicular Phase: 19-144 elevated estradiol test results leading to an Postmenopausal: < or = 31 Luteal Phase: 56-214 measurement. The cross reactivity could lead to falsely Estradiol, Ultrasensitive, LCMSMS assay is recommended (order code 65425). fulvestrant (Faslodex(R)) have demonstrated significant whom low Estradiol levels are anticipated (e.g. males, Please note: patients being treated with the drug females), the [facility] inappropriate clinical assessment of estrogen status. Reference Range interference in immunoassay methods for estradiol Reference range established on post-pubertal patient [employer] order code [id number], pre-pubertal children and hypogonadal/post-menopausal established using this assay. For any patients for reactivity with fulvestrant. Mid-Cycle: 64-357 Reason For Referral No Information Medications Medication SIG (Take, Route, Frequency, Duration) Notes Start Date End Date Status amLODIPine Benzoate 10 mg 11/21/2022 Active Losartan Potassium 100 MG 1 tablet Orall y Once a day Active Progesterone 200 mg TAKE ONE CAPSULE BY MOUTH AT BEDTIME for 90 days Active Testosterone Pellets Active Estrogen Pellets Act fer Indapamide 2.5 MG Oral for 30 Days Not-Taking Probiotic Active Vitamin C Active Turmeric Active Flaxseed (Linseed) A ctive Vitamin D2 50,000 UNIT 1 tablet Orally O nce a week for 60 days 10/26/2020 Active HERBAL SUPPLEMENT Ac tive Social History Tobacco Use: Social History Observation Description Date Details (start date - stop date) Current Smoker NA - NA Tobacco Use/Smoking Question Answer Notes Are you a current smoker Problems Problem Type SNOMED Code ICD Code Onset Dates Problem Status W/U Status Risk Notes Problem 40800056 Postmenopausal bleeding (N95.0) Active confirmed Problem Menopause (641504809) Menopausal and female climacteric states (N95.1) Active confirmed Problem Menopausal and postmenopausal disorders (164241083) Unspecified menopausal and perimenopausal disorder (N95.9) Active confirmed Problem Abnormal uterine bleeding (58307948107598) Abnormal uterine bleeding (N93.9) Active confirmed Problem Female climacteric state (603148730) Female climacteric state (N95.1) Active confirmed Problem 201497995 Perimenopausal disorder (N95.9) Active confirmed Problem 315708963 Menopausal and perimenopausal disorder (N95.9) Active confirmed Problem 879851461 History of uterine fibroid (Z86.018) Active confirmed Problem Menopause (887716298) Climacteric (N95.1) Active confirmed Problem 635048633 Status post hysterectomy (Z90.710) Active confirmed Problem 117917836 Perimenopausal symptoms (N95.1) Active confirmed Problem 37848474 Primary hypertension (I10) Active confirmed Problem 21496518 Elevated blood pressure reading in office with diagnosis of hypertension (I10) Active confirmed Problem Menopause (491067464) 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 Vital Signs Blood pressure diastolic 80 mm Hg 03/18/2024 Height 62.25 in 03/18/2024 Blood pressure systolic 134 mm Hg 03/18/2024 Weight 201.8 lbs 03/18/2024 BMI 36.61 kg/m2 03/18/2024 Encounters Encounter Location Date Provider Diagnosis [place] [address] [place], [place] [id number] 10/17/2023 Sally [facility] [address] [place], [place] [id number] 11/19/2023 Sally [facility] [address] [facility] [address] [place] [id number] 12/04/2023 Tan [facility] [address] [place], [place] [id number] 01/04/2024 Sally [facility] [address] [facility] [address] [place] [id number] 01/21/2024 Sally [facility] [address] [facility] [address] [id number] 01/21/2024 Tan [facility] [phone] [place] [address] 05/17/2023 [facility] [address] [place] [address] 10/12/2023 [facility] [phone] [place] [address] 11/04/2023 [facility] [address] [place] [address] 02/11/2024 [facility] [address] [place] [address] 10/17/2023 Tan Pinto Postmenopausal bleed ing N95.0 and Hormone replacement therapy (HRT) Z79.890 [facility] [address] [place] [address] 11/19/2023 Sally Eul PMB (postmenopausal bleeding) N95.0 and Intramural uterine fibroid D25.1 [facility] [address] [place] [address] 03/18/2024 Sally Eul Status post hysterectomy Z90.710 [facility] [address] [place] [address] 02/18/2024 Sally Eul Status post hysterectomy Z90.710 [facility] [address] [place] [address] 01/04/2024 Sally Eul History of uterine fibroid Z86.018 [facility] [address] [place] [address] 05/05/2024 Tan Pinto Menopausal and femal e climacteric states N95.1 [facility] [address] [place] [address] 02/06/2024 Tan Pinto Menopausal and femal e climacteric states N95.1 [facility] [address] [place] [address] 11/13/2023 Tan Pinto Menopausal and femal e climacteric states N95.1 [facility] [address] [place] [address] 05/10/2023 Tan Pinto Climacteric N95.1 [facility] [address] [place] [address] 07/31/2023 Tan Pinto Menopausal and femal e climacteric states N95.1 [facility] [address] [place] [address] 08/07/2023 Tan Pinto Menopausal and femal e climacteric states N95.1 [facility] [address] [place] [address] 05/17/2023 Tan Pinto Menopausal and femal e climacteric states N95.1 [facility] [address] [place] [address] 11/20/2023 Tan Pinto Menopausal and femal e climacteric states N95.1 ; Postmenopausal bleeding N95.0 and Uterine leiomyoma, unspecified location D25.9 [facility] [address] [place] [address] 02/14/2024 Tan Pinto Menopausal and femal e climacteric states N95.1 [facility] [address] [place] [address] 10/17/2023 Tan Pinto Abnormal uterine bleeding N93.[address] [address] 02/01/2024 Sally Eul Abnormal uterine bleeding N93.9 [facility] [address] [facility] [address] [place] [address] 12/18/2023 Sally Eul PMB (postmenopausal bleeding) N95.0 and SUBMUCOUS LEIOMYOMA D25.0 [address] [place] [address] 02/01/2024 Sally Eul Assessments Encounter Date Diagnosis (ICD Code) Assessment Notes Treat ment Notes Treatment Clinical Notes 05/17/2023 Menopausal and female climacteric states (ICD-10 - N95.1) 07/31/2023 Menopausal and female climacteric states (ICD-10 - N95.1) 08/07/2023 Menopausal and female climacteric states (ICD-10 - N95.1) 10/17/2023 Abnormal uterine bleeding (ICD-10 - N93.9) 10/17/2023 Postmenopausal bleeding (ICD-10 - N95.0) Pelvic US reviewed. Discussed fibroids and difficulty visualizing endometrium. Likely will need Endosee/EMB but want to review with MD first. Will need this evaluated before ongoing HRT is advised. Continue with daily progesterone as she has been taking. Report any heavy bleeding. Will call her next week when I'm back in office 10/25/22. 10/17/2023 Hormone replacement therapy (HRT) (ICD-10 - Z79.890) 11/13/2023 Menopausal and female climacteric states (ICD-10 - N95.1) 11/19/2023 PMB (postmenopausal bleeding) (ICD-10 - N95.0) Discussed importance of endometrial sampling in the setting of PMB, especially while on hormones. Pt's ultrasound also unable to delineate an endometrial stripe secondary to fibroids. -Discussed options including in office endosee/EMB however due to the likely fibroids within the cavity we may miss important pathology. Offered dilation and curettage/hysterosc opy with Myosure for diagnostic and therapeutic surgery. Patient also offered a hysterectomy however after a discussion of risks and benefits we decided to go with the dilation and curettage -Patient understands risks of surgery include bleeding, infection, damage to surrounding organs, need for further surgery. [place] so we will try to see if we can schedule at [facility]. 11/19/2023 Intramural uterine fibroid (ICD-10 - D25.1) Ultrasound demonstrating multiple fibroids in multiple locations. These have likely been present since before menopause. 11/20/2023 Postmenopausal bleeding (ICD-10 - N95.0) 11/20/2023 Menopausal and female climacteric states (ICD-10 - N95.1) 12/18/2023 PMB (postmenopausal bleeding) (ICD-10 - N95.0) 12/18/2023 SUBMUCOUS LEIOMYOMA (ICD-10 - D25.0) 01/04/2024 History of uterine fibroid (ICD-10 - Z86.018) Patient continues to have bleeding after D&C due to inability to resect submucosal fibroid completely at the time of surgery. Discussed repeating D&C (although there is a high risk we still would not be able to resect the entire fibroid), IUD (which would be difficult to place due to the irregular cavity), and hysterectomy. Patient would like a cost estimate for the hysterectomy prior to scheduling, she received a larger bill than expected for her hysteroscopy. The bleeding she is currently having is light. We discussed it may stop on its own as well, and if it does she does not need to have further treatment. Will send TE for a cost estimate and await patient's decision. 15 minutes spent on chart review, in face to face time with patient, documentation of above and coordination of care. 02/01/2024 Abnormal uterine bleeding (ICD-10 - N93.9) 02/06/2024 Menopausal and female climacteric states (ICD-10 - N95.1) 02/14/2024 Menopausal and female climacteric states (ICD-10 - N95.1) 02/18/2024 Status post hysterectomy (ICD-10 - Z90.710) Doing well from postop standpoint Pictures given and intraop findings reviewed RTC 4 weeks, continue restrictions until then 03/18/2024 Status post hysterectomy (ICD-10 - Z90.710) Cleared from all restrictions Discussed that her stitches are 180 sutures so will take time to completely dissolve RTC prn. Does not need further pap smears 05/05/2024 Menopausal and female climacteric states (ICD-10 - N95.1) 11/20/2023 Uterine leiomyoma, unspecified location (ICD-10 - D25.9) 05/10/2023 Climacteric (ICD-10 - N95.1) 05/17/2023 Other -HRT pellet inserted as documented above without complication -Post-insertion instructions reviewed. Printed handout with instructions given along with ice pack. Repeat ice to insertion site for 20 min. 3-5 times a day PRN for soreness at insertion site -Report any signs of infection or pellet expulsion -Repeat labs in 3 months (E2, FSH, total testosterone) with next insertion 1 week later -Follow up as needed before next insertion if any concerns 08/07/2023 Other -HRT pellet inserted as documented above without complication -Post-insertion instructions reviewed. Printed handout with instructions given along with ice pack. Repeat ice to insertion site for 20 min. 3-5 times a day PRN for soreness at insertion site -Report any signs of infection or pellet expulsion -Repeat labs in 3 months (E2, FSH, total testosterone) with next insertion 1 week later -Follow up as needed before next insertion if any concerns 10/17/2023 Other 30 min. of tota l time spent in chart prep, reviewing pelvic ultrasound, obtaining history, performing exam, and documenting visit note 11/19/2023 Other 30 minutes spen t on chart review, in face to face time with patient, documentation of above and coordination of care. 11/20/2023 Other -HRT pellet inserted as documented above without complication -Post-insertion instructions reviewed. Printed handout with instructions given along with ice pack. Repeat ice to insertion site for 20 min. 3-5 times a day PRN for soreness at insertion site -Report any signs of infection or pellet expulsion -Repeat labs in 3 months (E2, FSH, total testosterone) with next insertion 1 week later -Follow up as needed before next insertion if any concerns 02/14/2024 Other -HRT pellet inserted as documented above without complication -Post-insertion instructions reviewed. Printed handout with instructions given along with ice pack. Repeat ice to insertion site for 20 min. 3-5 times a day PRN for soreness at insertion site -Report any signs of infection or pellet expulsion -Repeat labs in 3 months (E2, FSH, total testosterone) with next insertion 1 week later -Follow up as needed before next insertion if any concerns Plan Of Treatment Pending Test Test Name Order Date FSH (IH) 05/05/2024 Testosterone, Total (IH) 05/05/2024 Sensitive Estradiol (IH) 05/05/2024 Next Appt Details Provider Name:Tan Pinto, 05/12/2024 03:30:00 PM, [address] [facility], [place], [address], Insurance Providers Payer Name Payer Address Payer Phone Subscriber Number Group Number Insured Name Patient Relationship to Insured Coverage Start Date Coverage End Date [facility] Commercial (Ins. Bill) [address] [address] [place], [place] [id number] Jody Ha Self - patient is the insured Medical (General) History Medical History History ICD Code Abnormal pap High blood pressure Chicken pox Surgical History Surgery Date(Month/Year) 1988 2001 tubal ligation D&C w/ Hysteroscopy and Myosure Total Laparoscopic hysterect roseann, bilateral salpingoophorectomy, uterosacral ligament suspension, cystoscopy 02/01/24
--- OUTSIDE RECORDS SUMMARY | 2024-05-06 14:01 | XMS_ITS | Encounter Summary ---
Author Organization [place] Address [facility] [place] [address] Care Team Providers Care Director Of Product Management Name Role Phone Unavailable Primary Care Provider Unavailabl e Reason for Visit * Auth/Cert (Routine) Specialty Diagnoses / Procedures Referred By Yissel sellers Referred To Contact Surgery Diagnoses Abnormal uterine bleeding Abnormal uterine bleeding [N93.9] Procedures NH LAP, SUPRACERVIAL HYSTERECTOMY W/ TUBE&OV, <250G NH LAP, SUPRACERVIAL HYSTERECTOMY W/ TUBE&OV, >250G NH LAP,VAG HYST,UTERUS 250GMS/<,SALP-OOPH NH LAP,VAG HYST,UTERUS >250GMS,SALP-OOPH NH LAPAROSCOPY W TOT HYSTERECTUTERUS <=250 GRAM W TUBE/OVARY NH LAPAROSCOPY TOT HYSTERECTOMY UTERUS >250 GRAM W TUBE/OVARY NH CYSTOURETHROSCOPY ROBOT ASSISTED LAPAROSCOPIC HYSTERECTOMY, UTEROSACRAL LIGAMENT SUSPENSION, BILATERAL OOPHORECTOMY, CYSTOSCOPY [facility] [address] [place] [address] Referral ID Status Reason Start Date Expiration Date Visits Re quested Visits Authorized [id number] 1 1 Encounter Details Date Type Department Care Team (Latest Contact Info) Description 02/01/2024 6:10 AM CDT - 02/01/2024 1:15 PM CDT Hospital Encounter [facility] Phase II [address] [place] [address] [place] [address] [place] [address] Status post laparoscopic hysterectomy (Primary Dx) Discharge Disposition: Home or Self Care Social History Tobacco Use Types Packs/Day Years [...] Body Mass Index 36.31 12/18/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 She is accepting of these risks. 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 She is accepting of these risks. DO [facility] documented in this encounter Miscellaneous Notes * Op Note - Sally Smith MD - 02/01/2024 8:05 AM CDT Images from the original note were not included. 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 We then performed cystoscopy. 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 Case: [id number] ? Authorizing Provider: ??Sally Smith MD ? Collected: ? 02/01/2024 08:32 AM ? Ordering Location: ? [facility] ?Received: ?02/01/2024 10:03 AM ? [facility] [...] ovary BENSON Peters 02/04/2024 2:[address] [facility] Microscopic Description Performed 02/04/2024 2:[address] [facility] Performing Labs The technical component of this testing was completed at [facility] 02/04/2024 2:[address] [facility] Case Images 02/04/2024 2:[address] [facility] Tissue STRUCTURE OF RIGHT FALLOPIAN TUBE / Unknown 02/01/2024 8:32 AM CDT 02/01/2024 10:03 AM CDT Tissue specimen (specimen) UTERUS AND CERVIX, CS / Unknown 02/01/2024 9:41 AM CDT 02/01/2024 10:03 AM CDT Sally [place] - BALJIT [facility] [address] [place] [address], [facility] * Adult Type and Screen (02/01/2024 6:25 AM CDT) ABO/RH(D) A POS 02/01/2024 6:[address] [facility] Antibody Screen Negative Negative 02/01/2024 6:[address] [facility] SPECIMEN EXPIRATION DATE [id number] 02/01/2024 6:[address] [facility] Blood STRUCTURE OF RIGHT UPPER LIMB / Unknown Venipuncture / Unknown 02/01/2024 6:25 AM CDT 02/01/2024 6:30 AM CDT Sally Smith MD LAB - BLOOD BANK PRESTON T ORDER Performing Organization Address [facility] de Phone Number [facility] [address] [place] [address], [facility] * HCG qualitative urine (02/01/2024 6:18 AM CDT) hCG Urine Qualitative Negative Negative ENMANUEL 02/01/2024 6:[address] [facility] Comment:This test is for scr eening purposes. Results should be interpreted along with the clinical picture. Confirmation testing is available if warranted by ordering [id number], HCG Quantitative . Urine MID-STREAM URINE SPECIMEN / Unknown Non-blood Collection / Unknown 02/01/2024 6:18 AM CDT 02/01/2024 6:20 AM CDT Sally Smith MD LAB - URINE ORDERABL ES Performing Organization Address [facility] de Phone Number [facility] [address] [place] [address], [facility] * EKG Cardiac - HIM Scan (12/07/2023 12:00 AM PLASTICS FACTORY WORKER) 12/07/2023 Provider Outside ECG ORDERABLES documented in this encounter Visit Diagnoses Diagnosis Status post laparoscopic hysterectomy- Primary Acquired absence of both cervix and uterus documented in this encounter Administered Medications Inactive Administered Medications - up to 3 most recent administrations Medication Order MAR Action Action Date Dose Rate Site acetaminophen (TYLENOL) tablet 975 mg 975 mg, Oral, ONCE, On Sun02/01/24 at 0630, For 1 dose, Maximum acetaminophen dose from all sources = 75 mg/kg/day not to exceed 4 grams/day., Pre-procedure $Given 02/01/2024 7:06 AM CDT 975 mg fentaNYL (PF) (SUBLIMAZE) injection 25 mcg 25 [...] 0613, For 1 dose, Verify order with Computer Applications Instructor provider prior to Administering. High concentration heparin. Not for line flush or cath care., Pre-procedure $Given 02/01/2024 7:06 AM CDT 5,000 Units Abdominal Tissue lactated ringers infusion at 100 mL/hr, Intravenous, [...] analgesic side effects. Hold while on IV CHAR PULLER or with regular IV opioid dosing. $Given [...] $Given 02/01/2024 6:58 AM CDT 3 mLs documented in this encounter Active and Recently Administered Medications Times are shown in CDT. Scheduled Medication Order 01/30/2024 01/31/2024 02/01/2024 acetaminophen (TYLENOL) tablet 975 mg (COMPLETED) 975 mg, Oral, ONCE, On Sun02/01/24 at 0630, For 1 dose, Maximum acetaminophen dose from all sources = 75 mg/kg/day not to exceed 4 grams/day., Pre-procedure 07 ($Given - Provi chaparro: Moni Rodriguez RN) [...] 0613, For 1 dose, Verify order with Computer Applications Instructor provider prior to Administering. High concentration heparin. [...] dose if patient meets PACU discharge., Pre-procedure 0707 ($New Bag - Pro vider: Moni Rodriguez [...] RN)1006 (Paused - Provider: Beto Delgado APRN MD PSYCHIATRY - Comment: Switch to gravity)1007 ($New Bag - Provider: Beto Delgado APRN CRNA) lactated ringers infusion (CANCELED) at 100 mL/hr, [...] PACU 1041 ($Given - Provi chaparro: Kel Aparicio, LICHA) lactated ringers (bag) irrigation SOLN (CANCELED) PRN, [...] analgesic side effects. Hold while on IV CHAR PULLER or with regular IV opioid dosing. 1248 [...]
--- OUTSIDE RECORDS SUMMARY | 2024-05-06 14:01 | XMS_ITS | Encounter Summary ---
Author Organization [place] Address [address] [place] [address]. [place] [address] Care Team Providers Care Teacher Name Role Phone Unavailable Primary Care Provider Unavailabl e Reason for Visit * Auth/Cert (Routine) Specialty Diagnoses / Procedures Referred By Yissel sellers Referred To Contact Surgery Diagnoses Abnormal uterine bleeding Abnormal uterine bleeding [N93.9] Procedures NM LAP, SUPRACERVIAL HYSTERECTOMY W/ TUBE&OV, <250G NM LAP, SUPRACERVIAL HYSTERECTOMY W/ TUBE&OV, >250G NM LAP,VAG HYST,UTERUS 250GMS/<,SALP-OOPH NM LAP,VAG HYST,UTERUS >250GMS,SALP-OOPH NM LAPAROSCOPY W TOT HYSTERECTUTERUS <=250 GRAM W TUBE/OVARY NM LAPAROSCOPY TOT HYSTERECTOMY UTERUS >250 GRAM W TUBE/OVARY NM CYSTOURETHROSCOPY ROBOT ASSISTED LAPAROSCOPIC HYSTERECTOMY, UTEROSACRAL LIGAMENT SUSPENSION, BILATERAL OOPHORECTOMY, CYSTOSCOPY [facility] [address] [place] [address] Referral ID Status Reason Start Date Expiration Date Visits Re quested Visits Authorized [id number] 1 1 Encounter Details Date Type Department Care Team (Late st Contact Info) Description 02/01/2024 7:25 AM CDT Anesthesia Event [facility] [address] [place] [address] Althea Castillo MD [address] [place] [address] Arsenio Solitario MD Anesthesia Record Procedure Summary Procedure Name Responsible Anesthesiologist Anesthesia Start Time Anesthesia Stop Time ROBOT ASSISTED LAPAROSCOPIC HYSTERECTOMY, BILATERAL OOPHORECTOMY, CYSTOSCOPY, REMOVAL OF BILATERAL TUBAL REMNANTS (Bilateral: Abdomen) Althea Castillo MD 02/01/24 0725 02/01/24 1032 Events Date Time Event Comment 02/01/2024 0646 FINANCE ATTORNEY Ready for Procedure 0658 0725 An Start 0725 An Start Data 0726 AN REASSESS I attest that I have identified and re-evaluated the patient immediately before the induction of anesthesia and I am satisfied that the anesthetic plan is suitable for the patient's condition and procedure. The first vital signs recorded are pre- induction. Beto Delgado APRN FINANCE ATTORNEY 0736 An Induction 0736 MD Present 0738 An Intubation 0752 Anesthesia Ready for Procedu re 0757 MD Present 0827 MD Present 0852 MD Present 0925 MD Present 1019 MD Present 1023 AN Extubation All extubation criteria met prior to removal. 1024 an stop data 1032 An Stop Electronically signed by Beto Delgado APRN FINANCE ATTORNEY on February 01, 2024 10:32 AM 1032 MD Present Meds Name Total midazolam 1 mg/mL 2 mg fentaNYL 50 mcg/mL 100 mcg HYDROmorphone 1 mg/ml 0.5 mg lidocaine 1% 5 mL propofol 10 mg/mL 150 mg propofol drip mcg/kg/min 2,645.85 mg ketamine injection 10 mg/mL 30 mg rocuronium 10 mg/mL 85 mg ePHEDrine 5 mg/mL in NS 10 mg phenylephrine (KHANH-SYNEPHRINE) injection 200 mcg dexamethasone (DECADRON) 10 mg/mL 10 mg ondansetron 2 mg/mL 4 mg glycopyrrolate 0.2 mg/mL 0.2 mg sugammadex (BRIDION) 200mg/2mL 200 mg ceFAZolin Sodium (ANCEF) injection 2 g 2 g magnesium sulfate 4 g in 50 mL sterile w ater intermittent infusion 0 g dexmedeTOMIDine (PRECEDEX) bolus from ba g or syringe ADULT 16 mcg lactated ringers infusion 1,000 mL * Agents Name O2 Air Exp Sevoflurane Exp Isoflurane Exp Desflurane Ins Sevoflurane Ins Isoflurane Ins Desflurane * Blood No blood administrations on file. Lines, Drains, and Airways Type Details Placement Removal Incision/Surgical Site Anterior, Mid, Qu adrant, Upper; Abdomen; Robotic Hysterectomy 02/01/24 0848 by Incision/Surgical Site 02/01/24; 0805; Anterior, Right, Quadrant, Upper; Abdomen; Robotic Hysterectomy 02/01/24 0805 by Smita Raymond RN Incision/Surgical Site 02/01/24; 0805; M id, Right, Quadrant, Anterior; Abdomen; Robotic Hysterectomy 02/01/24 0805 by Smita Raymond RN Incision/Surgical Site 02/01/24; 0805; Anterior, Left, Quadrant, Mid; Abdomen; Robotic Hysterectomy 02/01/24 0805 by Smita Raymond RN Incision/Surgical Site 12/18/23; Vagina; mariel pad and mesh underware; 02/01/24; 0800 12/18/23 0000 by Chandrika Salazar RN 02/01/24 0800 by Smita Raymond RN Peripheral IV 02/01/24; 0653; 20 G ; Anterior, Right; Hand; Chlorhexidine; 1; Tolerated well 02/01/24 0653 by Moni Rodriguez RN 02/01/24 1302 by Sandy Silva RN ETT Placement Date: 02/01/24; Placement Time: 0738 (created via procedure documentation); Mask Ventilation: 1; Induction Type: Intravenous; Ease of Intubation: Easy; Technique: Direct laryngoscopy; Tube Size: 7 mm; DL Blade Size: MAC 3; Grade View: 2; Adjucts: Stylet; Placement Person: FINANCE ATTORNEY; Attempts: 1 02/01/24 0738 by Althea Castillo MD 02/01/24 1023 by Beto Delgado APRN FINANCE ATTORNEY Urethral Catheter 02/01/24; 0805; No; Surgical procedure; 16 fr 02/01/24 0805 by Smita Raymond RN 02/01/24 1011 by Eloina Hernandez RN documented in this encounter Social History Tobacco Use Types Packs/Day Years Used Date Smoking Tobacco: Every Day Cigarettes 0.5 15 Smokeless Tobacco: Never Alcohol Use Standard Drinks/Week Comments Yes 10 (1 standard drink = 0.6 oz pu re alcohol) 6/week Adolescent Education Answer Date Record ed Getting School Help Needed Not on file 12/17 Sex and Gender Information Value Date Recorded Sex Assigned at Not on file Gender Identity Not on file Sexual Orientation Not on file documented as of this encounter OR Notes * Anesthesia Postprocedure Evaluation - Althea Castillo MD - 02/01/2024 11:32 AM CDT Patient: Jody Ha Procedure: Procedure(s): ROBOT ASSISTED LAPAROSCOPIC HYSTERECTOMY, UTEROSACRAL LIGAMENT SUSPENSION, BILATERAL OOPHORECTOMY, CYSTOSCOPY, REMOVAL OF BILATERAL TUBAL REMNANTS Anesthesia Type: General Note: Disposition: Outpatient Postop Pain Control: Uneventful Sign Out: Well controlled pain PONV: No Neuro/Psych: Uneventful Sign Out: Acceptable/Baseline neuro status Airway/Respiratory: Uneventful Sign Out: Acceptable/Baseline resp. status CV/Hemodynamics: Uneventful Sign Out: Acceptable CV status; No obvious hypovolemia; No obvious fluid overload Other NRE: NONE DID A NON-ROUTINE EVENT OCCUR? No Last vitals: Vitals Value Taken Time BP 127/73 02/01/24 1130 Temp 36 ??C (96.8 ??F) 02/01/24 1030 Pulse 65 02/01/24 1130 Resp 13 02/01/24 1130 SpO2 93 % 02/01/24 1130 Vitals shown include unfiled device data. Electronically Signed By: Althea Castillo MD February 01, 2024 11:32 AM * Anesthesia Procedure Notes - Beto Delgado APRN FINANCE ATTORNEY - 02/01/2024 8:00 AM CDTAssociated Order(s): Airway Airway Patient location during procedure: OR Procedure Start/Stop Times: 02/01/2024 7:38 AM Staff - Performed By: CRNAIndications and Patient Condition Indications for airway management: mariel-procedural Induction type:intravenous Mask difficulty assessment: 1 - vent by mask Final Airway Details Final airway type: endotracheal airway Successful airway: ETT - single Endotracheal Airway Details ETT size (mm): 7.0 Cuffed: yes Successful intubation technique: direct laryngoscopy DL Blade Type: MAC 3 Grade View of Cords: 2 Adjucts: stylet Position: Right Measured from: gums/teeth Secured at (cm): 21 Bite block used: None Post intubation assessment Placement verified by: capnometry and equal breath sounds Number of attempts at approach: 1 Number of other approaches attempted: 0 Secured with: tape Ease of procedure: easy Dentition: Intact and Unchanged Medication(s) Administered Medication Administration Time: 02/01/2024 7:38 AM * Anesthesia Preprocedure Evaluation - Althea Castillo MD - 02/01/2024 6:36 AM CDT Anesthesia Pre-Procedure Evaluation Patient: Jody Ha : 1965 Procedure : Procedure(s): ROBOT ASSISTED LAPAROSCOPIC HYSTERECTOMY, UTEROSACRAL LIGAMENT SUSPENSION, BILATERAL OOPHORECTOMY, CYSTOSCOPY Past Medical History: Diagnosis Date ??? Constipation ??? Family history of malignant neoplasm of gastrointestinal tract ??? Hypertension Past Surgical History: Procedure Laterality Date ??? DILATION AND CURETTAGE, OPERATIVE HYSTEROSCOPY, COMBINED N/A 12/18/2023 Procedure: HYSTEROSCOPY DILATION AND CURETTAGE MYOSURE; Surgeon: Sally Smith MD; Location: [facility] OR ??? SALPINGECTOMY ??? WISDOM TOOTH EXTRACTION ??? ZZC C-SEC ONLY,PREV C-SEC 10/22/1988 Allergies Allergen Reactions ??? No Known Allergies Social History Tobacco Use ??? Smoking status: Every Day Current packs/day: 0.50 Average packs/day: 0.5 packs/day for 15.0 years (7.5 ttl pk-yrs) Types: Cigarettes ??? Smokeless tobacco: Never Substance Use Topics ??? Alcohol use: Yes Alcohol/week: 10.0 standard drinks of alcohol Wt Readings from Last 1 Encounters: 12/18/23 93 kg (205 lb) Anesthesia Evaluation Pt has had prior anesthetic. No history of anesthetic complications ROS/MED HX ENT/Pulmonary: - neg pulmonary ROS Neurologic: - neg neurologic ROS Cardiovascular: (+) hypertension- - - - - METS/Exercise Tolerance: >4 METS Hematologic: - neg hematologic ROS Musculoskeletal: GI/Hepatic: - neg GI/hepatic ROS Renal/Genitourinary: - neg Renal ROS Endo: (+) Obesity (BMI 36), Psychiatric/Substance Use: Infectious Disease: Malignancy: Other: Comment: Post menopausal bleeding Uterine fibroids Physical Exam Airway Mallampati: I TM distance: > 3 FB Neck ROM: full Mouth opening: > 3 cm Respiratory Devices and Support Dental Comment: Good, molar crown Cardiovascular cardiovascular exam normal Pulmonary pulmonary exam normal OUTSIDE LABS: CBC: No results found for: WBC, HGB, HCT, PLT BMP: No results found for: NA, POTASSIUM, CHLORIDE, CO2, BUN, CR, GLC COAGS: No results found for: PTT, INR, FIBR POC: No results found for: BGM, HCG, HCGS HEPATIC: No results found for: ALBUMIN, PROTTOTAL, ALT, AST, GGT, ALKPHOS, BILITOTAL,BILIDIRECT, CLIFFORD OTHER: No results found for: PH, LACT, A1C, GIOVANY, PHOS, MAG, LIPASE, AMYLASE, TSH,T4, T3, CRP, SED Anesthesia Plan ASA Status: 2 NPO Status: NPO Appropriate Anesthesia Type: General. - Airway: ETT Induction: Intravenous, Propofol. Maintenance: TIVA. Techniques and Equipment: - Lines/Monitors: 2nd IV - Blood: T&S Consents Anesthesia Plan(s) and associated risks, benefits, and realistic alternatives discussed. Questions answered and patient/training representative(s) expressed understanding. - Discussed: Risks, Benefits and Alternatives for BOTH SEDATION and the PROCEDURE were discussed - Discussed with: Patient - Extended Intubation/Ventilatory Support Discussed: No. - Patient is DNR/DNI Status: No Use of blood products discussed: Yes. - Discussed with: Patient. - Consented: consented to blood products Postoperative Care Pain management: Multi-modal analgesia. PONV prophylaxis: Ondansetron (or other 5HT-3), Dexamethasone or Solumedrol Comments: Other Comments: TIVA with propofol an precedex Acetaminophen Magnesium Ketamine 30 mg Decadron 10 mg Althea Castillo MD I have reviewed the pertinent notes and labs in the chart from the past 30 days and (re)examined the patient. Any updates or changes from those notes are reflected in this note. documented in this encounter Miscellaneous Notes * Anesthesia Care Transfer Note - Beto Delgado APRN CRNA - 02/01/2024 10:32 AM CDT Patient: Jody Ha Procedure: Procedure(s): ROBOT ASSISTED LAPAROSCOPIC HYSTERECTOMY, UTEROSACRAL LIGAMENT SUSPENSION, BILATERAL OOPHORECTOMY, CYSTOSCOPY, REMOVAL OF BILATERAL TUBAL REMNANTS Diagnosis: Abnormal uterine bleeding [N93.9] Diagnosis Additional Information: No value filed. Anesthesia Type: General Note: Oropharynx: oropharynx clear of all foreign objects Level of Consciousness: awake Oxygen Supplementation: face mask Level of Supplemental Oxygen (L/min / FiO2): 6 Independent Airway: airway patency satisfactory and stable Dentition: dentition unchanged Patient transferred to: PACU Handoff Report: Identifed the Patient, Identified the Reponsible Provider, Reviewed the pertinent medical history, Discussed the surgical course, Reviewed Intra-OP anesthesia mangement and issues during anesthesia, Set expectations for post-procedure period and Allowed opportunity for questions andacknowledgement of understanding Vitals: Vitals Value Taken Time BP 129/76 02/01/24 1030 Temp 36 ??C (96.8 ??F) 02/01/24 1030 Pulse 68 02/01/24 1031 Resp 0 02/01/24 1031 SpO2 94 % 02/01/24 1031 Vitals shown include unfiled device data. Electronically Signed By: Beto Delgado APRN CRNA February 01, 2024 10:32 AM documented in this encounter Plan of Treatment Not on file documented as of this encounter Procedures Procedure Name Priority Date/Time Associated Diagnosis Comments ANE AIRWAY ETT PERFORMABLE Routine 02/01/2024 7:38 AM CDT documented in this encounter Results * ANE AIRWAY ETT PERFORMABLE (02/01/2024 7:38 AM CDT) Narrative Beto Delgado APRN CRNA - 02/01/2024 7:38 AM CDT Beto Delgado APRN CRNA ? 02/01/2024 ??8:01 AM Airway ? Patient location during procedure: OR ? Procedure Start/Stop Times: 02/01/2024 7:38 AM Staff - ? Performed By: CRNAIndications and Patient Condition ? Indications for airway management: mariel-procedural ? Induction type:intravenous ? Mask difficulty assessment: 1 - vent by mask Final Airway Details ? Final airway type: endotracheal airway ? Successful airway: ETT - single Endotracheal Airway Details ? ETT size (mm): 7.0 ? Cuffed: yes ? Successful intubation technique: direct laryngoscopy ? DL Blade Type: MAC 3 ? Grade View of Cords: 2 ? Adjucts: stylet ? Position: Right ? Measured from: gums/teeth ? Secured at (cm): 21 ? Bite block used: None Post intubation assessment ? Placement verified by: capnometry and equal breath sounds ? Number of attempts at approach: 1 ? Number of other approaches attempted: 0 ? Secured with: tape ? Ease of procedure: easy ? Dentition: Intact and Unchanged Medication(s) Administered Medication Administration Time: 02/01/2024 7:38 AM Althea Castillo MD NM ANESTHESIA documented in this encounter Visit Diagnoses Not on filedocumented in this encounter Administered Medications Inactive Administered Medications - up to 3 most recent administrations Medication Order MAR Action Action Date Dose Rate Site ceFAZolin Sodium (ANCEF) injection 2 g Routine, 2 g, Intravenous, PRE-OP/PRE-PROCEDURE, Starting on Sun02/01/24 at 0613, For 1 dose, Give first dose within 1 hour PRIOR to incision. If patient weight is greater than or equal to 120 kg increase dose to 3 g., Indications: Perioperative Pharmacoprophylaxis, Pre-procedure $Given 02/01/2024 7:30 AM CDT 1 g $Given 02/01/2024 7:24 AM CDT 1 g dexAMETHasone PF (DECADRON) injection Intravenous, PRN, Administer over 1 Minutes, Starting on Sun02/01/24 at 0753, Anesthesia Intra-op $Given 02/01/2024 7:53 AM CDT 10 mg dexmedeTOMIDine (PRECEDEX) bolus from bag or syringe ADULT Intravenous, PRN, Administer over 10 Minutes, Starting on Sun02/01/24 at 0806, Anesthesia Intra-op $Given 02/01/2024 10:03 AM CDT 8 mcg $Given 02/01/2024 8:06 AM CDT 8 mcg ePHEDrine injection Intravenous, PRN, Starting on Sun02/01/24 at 0812, Anesthesia Intra-op $Given 02/01/2024 8:12 AM CDT 10 mg fentaNYL (PF) (SUBLIMAZE) injection Intravenous, PRN, Administer over 3-5 Minutes, Starting on Sun02/01/24 at 0738, Anesthesia Intra-op $Given 02/01/2024 7:38 AM CDT 100 mcg glycopyrrolate (ROBINUL) injection Intravenous, PRN, Administer over 1-2 Minutes, Starting on Sun02/01/24 at 0809, Anesthesia Intra-op $Given 02/01/2024 8:09 AM CDT 0.2 mg HYDROmorphone (DILAUDID) injection Intravenous, PRN, Starting on Sun02/01/24 at 0944, Anesthesia Intra-op $Given 02/01/2024 9:44 AM CDT 0.5 mg ketamine (KETALAR) injection Intravenous, PRN, Administer over 2-5 Minutes, Starting on Sun02/01/24 at 0736, Anesthesia Intra-op $Given 02/01/2024 7:36 AM CDT 30 mg lactated ringers infusion at 100 mL/hr, Intravenous, CONTINUOUS, Pre-procedure, Starting on Sun02/01/24 at 0630, Until Sun02/01/24 at 1028 $New Bag 02/01/2024 10:07 AM CDT $New Bag 02/01/2024 6:58 AM CDT 100 mL/hr lidocaine 1 % injection Intravenous, PRN, Starting on Sun02/01/24 at 0736, Anesthesia Intra-op $Given 02/01/2024 7:36 AM CDT 5 mLs midazolam (VERSED) injection Intravenous, Administer over 2 Minutes, PRN, Starting on Sun02/01/24 at 0724, Anesthesia Intra-op $Given 02/01/2024 7:24 AM CDT 2 mg ondansetron (ZOFRAN) injection Intravenous, PRN, Administer over 2-5 Minutes, Starting on Sun02/01/24 at 1001, Anesthesia Intra-op $Given 02/01/2024 10:01 AM CDT 4 mg phenylephrine (KHANH-SYNEPHRINE) injection Intravenous, CONTINUOUS PRN, Starting on Sun02/01/24 at 0747, Anesthesia Intra-op $New Bag 02/01/2024 7:47 AM CDT 200 mcg propofol (DIPRIVAN) infusion Intravenous, CONTINUOUS PRN, Starting on Sun02/01/24 at 0740, Anesthesia Intra-op Rate/Dose Change 02/01/2024 10:00 AM CDT 100 mcg/kg/min 55.8 mL/hr Rate/Dose Change 02/01/2024 9:43 AM CDT 150 mcg/kg/min 83. 7 mL/hr $New Bag 02/01/2024 7:40 AM CDT 200 mcg/kg/min 111.6 mL/ hr propofol (DIPRIVAN) injection 10 mg/mL vial Intravenous, PRN, Starting on Sun02/01/24 at 0736, Anesthesia Intra-op $Given 02/01/2024 7:36 AM CDT 150 mg rocuronium injection Intravenous, PRN, Starting on Sun02/01/24 at 0736, Anesthesia Intra-op $Given 02/01/2024 9:34 AM CDT 15 mg $Given 02/01/2024 8:35 AM CDT 20 mg $Given 02/01/2024 7:36 AM CDT 50 mg sugammadex (BRIDION) injection Intravenous, PRN, Starting on Sun02/01/24 at 1012, Anesthesia Intra-op $Given 02/01/2024 10:12 AM CDT 200 mg documented in this encounter
--- OUTSIDE RECORDS SUMMARY | 2024-05-06 14:01 | XMS_ITS | Continuity of Care Document ---
Author Organization [facility] Address [address] [place] [phone] Phone Care Team Providers Care Paper Reclaiming Machine Operator Name Role Phone Will Kingston JANE Unavailable Unavailabl e Advance Directives Directive Yes / No Effective Date File Name No Information Encounters Encounter Description Practice Location Reason(s) For Visit Diagnoses Date Provider Providers Copied on Encounter [facility], [address] [place] [address], [id number], [place] tel:[phone] [facility] No Information Will Kingston. [address] [facility], [id number], [place]. tel:[phone] Family History Family Member Type Diagnosis Age At Onset No Information Payers Payer name Insurance type Covered republican ID Authoriza tion(s) No Information Social History Type Description Quantity Date Captured Comments Sex Female Smoking Status No Information Chief Complaint And Reason For Visit No Information Reason For Referral Reason For Referral No Information History Of Present Illness Encounter Date Complaint History Of Prese nt Illness No Information Functional Status Date Functional Assessmen t No Information Instructions Date Instruction Additional Infor mation No Information Assessments Type Assessment Date No Information Patient Care Teams Name Effective Dates (start - stop) Status Members No Information
== END 2024-05-06 13:59 | disposition home or self-care (01) ==
LOC: MAMMO 13:59
PROVIDERS: PCP Family Medicine; Visit Provider Family Medicine
DX: Z12.31 Encounter for screening mammogram for malignant neoplasm of breast (principal); N63.10 Unspecified lump in the right breast, unspecified quadrant
CPT/HCPCS: 77063; 77067

== ENCOUNTER 2024-05-15 10:26 | Outpatient (CLI) | payer OTHER, SELFPAY ==
--- OUTSIDE RECORDS SUMMARY | 2024-05-15 10:28 | XMS_ITS | Clinical Summary ---
Author Organization [place] Address [address] [place] [address]. [place] [address] Care Team Providers Care Bleaching Supervisor Name Role Phone Unavailable Primary Care Provider [...] 160 cm (5' 3) 12/18/2023 12:22 PM CADASTRAL SURVEYOR Body Mass Index 36.31 12/18/2023 12:22 PM CADASTRAL SURVEYOR Plan of Treatment Health Maintenance Due Date [...] HCL PAP SMEAR Routine 12/08/1999 1:00 PM CADASTRAL SURVEYOR Gynecologic Examination from Last 3 Months or Most Recently Relevant to Health Maintenance Results * PAP SMEAR (12/08/1999 1:00 PM CADASTRAL SURVEYOR) Unlabelled DNR [facility] Source DNR [facility] LMP [id number] [facility] Clinical History DNR [facility] Therapy DNR [facility] Last Pap Diagnosis WITHIN NORMAL LIMITS [facility] PAP Date [id number] [facility] Prev Bx Dx DNR [facility] Prev Bx Date DNR [facility] Addl Hx Info [facility] Statement of Adequacy [facility] Comment: SATISFACTORY FOR INTERPRETATION ENDOCERVICAL COMPONENT (COLUMNAR AND/OR METAPLASTIC) IS PRESENT General Categorization DNR [facility] Descriptive Diagnosis [facility] Comment:WITHIN NORMAL LIMITS Recommendations DNR [facility] DNR 125,,,,,, [facility] DNR DNR [facility] DNR [facility]NR [facility] DNR DNR [facility] . [facility] Comment: ?PAP SMEARS ARE SUBJECT TO BOTH FALSE NEGATIVE AND FALSE ? POSITIVE RESULTS EVIDENCED BY DATA PUBLISHED IN THE ? MEDICAL LITERATURE. ??YOUR PATIENT'S RESULT SHOULD BE ? INTERPRETED IN THIS CONTEXT, TOGETHER WITH THE PATIENT'S ? HISTORY AND CLINICAL FINDINGS. TESTING LOCATION ? THIS TEST [facility]FOR[facility] ? [address] [facility]. [address] ? PHONE NUMBERS FOR CYTOLOGY INQUIRES, INCLUDING SLIDE REQUESTS ? EXT. [id number] ?? EXT. [id number] 12/07/1999 Leah Chapa MD LABORATORY Performing Organization Address City/State/[facility] Co tn Phone Number [facility] from Last 3 Months or Most Recently Relevant to Health Maintenance Jody Ha Personal/Family Self 1965 [address] [place] [address]
--- OUTSIDE RECORDS SUMMARY | 2024-05-15 10:28 | XMS_ITS | Referral Summary ---
Author Organization [place] Address [address] [place] [address]. [place] [address] Care Team Providers Care Generator Repairer Name Role Phone Unavailable Primary Care Provider [...] 160 cm (5' 3) 12/18/2023 12:22 PM ANTIQUE FURNITURE REPRODUCER Body Mass Index 36.31 12/18/2023 12:22 PM ANTIQUE FURNITURE REPRODUCER Plan of Treatment Not on file Procedures Procedure Name Priority Date/Time Associated Diagnosis Comments HCL PAP SMEAR Routine 12/08/1999 1:00 PM ANTIQUE FURNITURE REPRODUCER Gynecologic Examination from Last 3 Months or Most Recently Relevant to Health Maintenance Results * PAP SMEAR (12/08/1999 1:00 PM ANTIQUE FURNITURE REPRODUCER) Unlabelled DNR [facility] Source DNR [facility] LMP [id number] [facility] Clinical History DNR [facility] Therapy DNR [facility] Last Pap Diagnosis WITHIN NORMAL LIMITS [facility] PAP Date [id number] [facility] Prev Bx Dx DNR [facility] Prev Bx Date DNR [facility] Addl Hx Info [facility] Statement of Adequacy [facility] Comment: SATISFACTORY FOR INTERPRETATION ENDOCERVICAL COMPONENT (COLUMNAR AND/OR METAPLASTIC) IS PRESENT General Categorization DNR [facility] Descriptive Diagnosis [facility] Comment:WITHIN NORMAL LIMITS Recommendations DNR [facility] DNR 125,,,,,, [facility] DNR DNR [facility] DNR DNR [facility] DNR DNR [facility] . [facility] Comment: ?PAP SMEARS ARE SUBJECT TO BOTH FALSE NEGATIVE AND FALSE ? POSITIVE RESULTS EVIDENCED BY DATA PUBLISHED IN THE ? MEDICAL LITERATURE. ??YOUR PATIENT'S RESULT SHOULD BE ? INTERPRETED IN THIS CONTEXT, TOGETHER WITH THE PATIENT'S ? HISTORY AND CLINICAL FINDINGS. TESTING LOCATION ? THIS TEST WAS PERFORMED AT [facility] ? [address] [place] [address]. [address] ? PHONE NUMBERS FOR CYTOLOGY INQUIRES, INCLUDING SLIDE REQUESTS ? EXT. [id number] ?? EXT. [id number] 12/07/1999 Leah Chapa MD LABORATORY [facility] from Last 3 Months or Most Recently Relevant to Health Maintenance Jody Ha Personal/Family Self 1965 [address] [place] [address]
--- OUTSIDE RECORDS SUMMARY | 2024-05-15 10:29 | XMS_ITS | Clinical Summary ---
Author Organization [employer] [facility] Address [place], [place] [address] Care Team Providers Care Residential Appraiser Name Role Phone Ben Jones MD Primary Care Provider [phone] Social History Tobacco Use Types Packs/Day Years Used Date Smoking Tobacco: Never Assessed Sex and Gender Information Value Date Recorded Sex Assigned at Not on file Gender Identity Not on file Sexual Orientation Not on file Plan of Treatment Not on file Care Teams Residential Appraiser Relationship Specialty Start Date End Date Ben Jones MD PCP - General Family Practice 12/25/14
--- OUTSIDE RECORDS SUMMARY | 2024-05-15 10:29 | XMS_ITS ---
Author Organization [facility] Address [address] [place] [address] Care Team Providers Care Project Management Specialist Name Role Phone Tan Pinto Primary Care Provider REASON FOR VISIT HRT labs Encounters Encounter Location Date Provider Diagnosis [facility] [address] [place] [address] 05/12/2024 Tan Pinto Plan Of Treatment Next Appt Details Provider Name:Tan Pinto, 05/15/2024 03:45:00 PM, [address] [place], [address], Provider Name:Tan Pinto, 05/20/2024 02:00:00 PM, [address] [place], [address], Progress Notes * Donal RENNERaDOB:1965 ( 58 yo F)Acc No.[id number]:05/12/2024 Patient:?Jody RENNER :1965???Age:58 Y???Sex:Female Address:[address] [place], [address] * true * Date:? Generated for Printi ng/Faxing/eTransmitting on:?05/15/2024 10:29 AM CDT
--- OUTSIDE RECORDS SUMMARY | 2024-05-15 10:29 | XMS_ITS ---
Author Organization [facility] Address [address] [place] [address] Care Team Providers Care Cloth Feeder Name Role Phone Tan Pinto Primary Care Provider [phone] REASON FOR VISIT IH HRT Labs Encounters Encounter Location Date Provider Diagnosis [facility] [address] [place] [address] 05/15/2024 Tan Pinto Menopausal and femal e climacteric states N95.1 Assessments Encounter Date Diagnosis (ICD Code) Assessment Notes Treat ment Notes Treatment Clinical Notes 05/15/2024 Menopausal and female climacteric states (ICD-10 - N95.1) Plan Of Treatment Pending Test Test Name Order Date FSH (IH) 05/15/2024 Testosterone, Total (IH) 05/15/2024 Sensitive Estradiol (IH) 05/15/2024 Next Appt Details Provider Name:Tan Pinto, 05/15/2024 03:45:00 PM, [address] [place], [address], Provider Name:Tan Pinto, 05/20/2024 02:00:00 PM, [address] [place], [address], Progress Notes * Gregorio RENNER:1965 ( 58 yo F)Acc No.[id number]:05/15/2024 Patient:?Jody RENNER Provider:?BOSTON Woods :1965???Age:58 Y???Sex:Female D ate:05/15/2024 Address:[facility] [address] , [facility] Structured Data:[place] : [place] Subjective: * Chief Complaints: * ???1. IH HRT Labs. * Medical History:? Objective: * Vitals:? Assessment: * Assessment: 1.?Menopausal and female cli macteric states - N95.1??? Plan: * Treatment: * Procedure Codes:?82196 ASSAY OF ESTRADIOL - IH, 59604 GONADOTROPIN (FSH) - IH, 34219 ASSAY OF TOTAL TESTOSTERONE - IH * Images: Billing Information: * Visit Code:? * Procedure Codes:? 24303 ASSAY OF ESTRADIOL - IH. 46195 GONADOTROPIN (FSH) - IH. 97136 ASSAY OF TOTAL TESTOSTERONE - IH. * Electronic signature of Liz Pinto on 05/15/2024 at 10:28 AM CDT Sign off status: Pending * Provider:?BOSTON Woods Date:?04/22 Generated for Mikel proctor/Doc/Aaronitting on:?05/15/2024 10:28 AM CDT
--- OUTSIDE RECORDS SUMMARY | 2024-05-15 10:29 | XMS_ITS | Continuity of Care Document ---
Author Organization [facility] Address [address] [place] [address] Phone Care Team Providers Care Cash Management Associate Name Role Phone Will Kingston JANE Unavailable Unavailabl e Advance Directives Directive Yes / No Effective Date File Name No Information Encounters Encounter Description Practice Location Reason(s) For Visit Diagnoses Date Provider Providers Copied on Encounter [facility], [address] [place] [address], [id number], [place] tel:[phone] [facility] No Information Will Kingston. [address] [facility] [place], [id number], [place]. tel:[phone] Family History Family Member Type Diagnosis Age At Onset No Information Payers Payer name Insurance type Covered constitution party ID Authoriza tion(s) No Information Social [...]
--- OUTSIDE RECORDS SUMMARY | 2024-05-15 10:29 | XMS_ITS | Patient Health Record ---
Author Organization [facility] Address [address] [place] [address] Care Team Providers Care Pharmaceutical Plant Operator Name Role Phone Tan Pinto Primary Care Provider [phone] Eul, Sally Unavailable [phone] Allergies No Known Allergies Results Component Value Reference Range Notes Sensitive Estradiol (IH) Reviewed date:05/12/2024 09:37:27 AM Interpretation: Performing Lab: Notes/Report: Access 2 ([id number]), Keny - Lab FSH (IH) Reviewed date:05/12/2024 09:37:26 AM Interpretation: Performing Lab: Notes/Report: Access 2 ([id number]), [facility]y - Lab Sensitive Estradiol (IH) Reviewed date:11/15/2023 03:29:35 PM Interpretation: Performing Lab: Notes/Report: Access 2 ([id number]), Access 2 [facility] Testosterone, Total (IH) Reviewed date:11/15/2023 03:29:35 PM Interpretation: Performing Lab: Notes/Report: Access 2 ([id number]), Access 2 [facility] FSH (IH) Reviewed date:11/15/2023 03:29:35 PM Interpretation: Performing Lab: Notes/Report: Access 2 ([id number]), Access 2 [facility] Testosterone, Total (IH) Reviewed date:05/12/2024 09:37:26 AM Interpretation: Performing Lab: Notes/Report: Access 2 ([id number]), [facility] - Lab Sensitive Estradiol (IH) Reviewed date:02/08/2024 01:16:42 PM Interpretation: Performing Lab: Notes/Report: Access 2 ([id number]), [facility] Testosterone, Total (IH) Reviewed date:02/08/2024 01:16:42 PM Interpretation: Performing Lab: Notes/Report: Access 2 ([id number])Keny FSH (IH) Reviewed date:02/08/2024 01:16:42 PM Interpretation: Performing Lab: Notes/Report: Access 2 ([id number]) Keny TESTOSTERONE, TOTAL, LC/MS/M S Reviewed date:08/04/2023 07:59:23 PM Interpretation: Performing Lab:ZAmanda, [facility] [address], [address] Robert Tapia MD Notes/Report: 0; 0; 0 TESTOSTERONE, TOTAL, MS 140 2-45 ng/dL For additional information, please refer to https://education.[employer] Alpha/faq/TotalTestosteroneLCMS MS (This link is being provided for informational/educational purposes only.) (Note) This test was developed and its analytical performance characteristics have been determined by [employer]. It has not been cleared or approved by the FDA. This assay has been validated pursuant to the CLIA regulations and is used for clinical purposes. [facility] [address] [address],[address] [facility] [address] Robert Tapia MD FSH Reviewed date:08/04/2023 07:59:23 PM Interpretation: Performing Lab:[facility], [place] Ace Negron Notes/Report: 0; 0; 0 FSH 31.2 Reference Range Follicular Phase 2.5-10.2 Mid-cycle Peak 3.1-17.7 Luteal Phase 1.5- 9.1 Postmenopausal 23.0-116.3 ESTRADIOL Reviewed date:08/04/2023 07:59:23 PM Interpretation: Performing Lab:[facility], [place] Ace Negron Notes/Report: 0; 0; 0 ESTRADIOL 58 Reference Range Follicular Phase: 19-144 Mid-Cycle: 64-357 Luteal Phase: 56-214 Postmenopausal: < or = 31 Reference range established on post-pubertal patient population. No pre-pubertal reference range established using this assay. For any patients for whom low Estradiol levels are anticipated (e.g. males, pre-pubertal children and hypogonadal/post-menopausal females), the [facility] [place] [facility] Estradiol, Ultrasensitive, LCMSMS assay is recommended (order code 56598). Please note: patients being treated with the drug fulvestrant (Faslodex(R)) have demonstrated significant interference in immunoassay methods for estradiol measurement. The cross reactivity could lead to falsely elevated estradiol test results leading to an inappropriate clinical assessment of estrogen status. [facility] [place] order code [id number]-Roiltnzmb, Ultrasensitive LC/MS/MS demonstrates negligible cross reactivity with fulvestrant. Reason For Referral No Information Medications Medication SIG (Take, Route, Frequency, Duration) Notes Start Date End Date Status Progesterone 200 mg TAKE ONE CAPSULE BY MOUTH AT BEDTIME for 90 days Active amLODIPine Benzoate 10 mg 11/21/2022 Active Testosterone Pellets Active Estrogen Pellets Act fer Indapamide 2.5 MG Oral for 30 Days Not-Taking Probiotic Active Vitamin C Active Turmeric Active Flaxseed (Linseed) A ctive Vitamin D2 50,000 UNIT 1 tablet Orally O nce a week for 60 days 10/26/2020 Active HERBAL SUPPLEMENT Ac tive Losartan Potassium 100 MG 1 tablet Orall y Once a day Active Social History Tobacco Use: Social History Observation Description Date Details (start date - stop date) Current Smoker NA - NA Tobacco Use/Smoking Question Answer Notes Are you a current smoker Problems Problem Type SNOMED Code ICD Code Onset Dates Problem Status W/U Status Risk Notes Problem 23706675 Postmenopausal bleeding (N95.0) Active confirmed Problem Menopause (336115709) Menopausal and female climacteric states (N95.1) Active confirmed Problem Menopausal and postmenopausal disorders (070941518) Unspecified menopausal and perimenopausal disorder (N95.9) Active confirmed Problem Abnormal uterine bleeding (73915924235119) Abnormal uterine bleeding (N93.9) Active confirmed Problem Female climacteric state (766478919) Female climacteric state (N95.1) Active confirmed Problem 878601127 Perimenopausal disorder (N95.9) Active confirmed Problem 395631653 Menopausal and perimenopausal disorder (N95.9) Active confirmed Problem 287317889 History of uterine fibroid (Z86.018) Active confirmed Problem Menopause (040660349) Climacteric (N95.1) Active confirmed Problem 726364556 Status post hysterectomy (Z90.710) Active confirmed Problem 905936182 Perimenopausal symptoms (N95.1) Active confirmed Problem 49235887 Primary hypertension (I10) Active confirmed Problem 76610241 Elevated blood pressure reading in office with diagnosis of hypertension (I10) Active confirmed Problem Menopause (579065778) 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 Vital Signs Blood pressure diastolic 80 mm Hg 03/18/2024 Height 62.25 in 03/18/2024 Blood pressure systolic 134 mm Hg 03/18/2024 Weight 201.8 lbs 03/18/2024 BMI 36.61 kg/m2 03/18/2024 Encounters Encounter Location Date Provider Diagnosis [facility] [address] [place] [address] 10/17/2023 Tan Pinto Postmenopausal bleed ing N95.0 and Hormone replacement therapy (HRT) Z79.890 [facility] [address] [place] [address] 11/19/2023 Sally Eul PMB (postmenopausal bleeding) N95.0 and Intramural uterine fibroid D25.1 [facility] [address] [place] [address] 03/18/2024 Sally Eul Status post hysterectomy Z90.710 [facility] [address] [place] [address] 08/07/2023 Tan Pinto Menopausal and femal e climacteric states N95.1 [facility] [address] [place] [address] 11/20/2023 Tan Pinto Menopausal and femal e climacteric states N95.1 ; Postmenopausal bleeding N95.0 and Uterine leiomyoma, unspecified location D25.9 [facility] [address] [place] [address] 02/14/2024 Tan Pinto Menopausal and femal e climacteric states N95.1 [facility] [address] [place] [address] 05/17/2023 Tan Pinto Menopausal and femal e climacteric states N95.1 [facility] [address] [place] [address] 07/31/2023 Tan Pinto Menopausal and femal e climacteric states N95.1 [facility] [address] [place] [address] 11/13/2023 Tan Pinto Menopausal and femal e climacteric states N95.1 [facility] [address] [place] [address] 02/06/2024 Tan Pinto Menopausal and femal e climacteric states N95.1 [facility] [address] [place] [address] 05/05/2024 Tan Pinto Menopausal and femal e climacteric states N95.1 [facility] [address] [place] [address] 10/17/2023 Tan Pinto Abnormal uterine bleeding N93.9 [facility] [address] [place] [address] 01/04/2024 Sally Eul History of uterine fibroid Z86.018 [facility] [address] [place] [address] 02/18/2024 Sally Eul Status post hysterectomy Z90.[address] [address] 02/01/2024 Sally Eul [facility] [address] [facility] [address] [place] [address] 12/18/2023 Sally Eul PMB (postmenopausal bleeding) N95.0 and SUBMUCOUS LEIOMYOMA D25.[address] [address] 02/01/2024 Sally Eul Abnormal uterine bleeding N93.9 [facility] [address] [place] [address] 05/12/2024 Tan Pinto [facility] [address] [place] [address] 05/17/2023 Tan Pinto [facility] [address] [place] [address] 10/12/2023 Tan Pinto [facility] [address] [place] [address] 11/04/2023 Tan Pinto [facility] [address] [place] [address] 02/11/2024 [facility] [address] [place] [address] 10/17/2023 [facility] [address] [place] [address] 11/19/2023 Sally [facility] [address] [place] [address] [place] [id number] 12/04/2023 Tan Pinto [facility] [address] [place] [address] 01/04/2024 [facility] [address] [place] [address] [place] [id number] 01/21/2024 [facility] [address] [place], [place] [address] [address] [place] [id number] 01/21/2024 Tan Pinto Assessments Encounter Date Diagnosis (ICD Code) Assessment [...] to see if we can schedule at [facility]. 11/19/2023 Intramural uterine fibroid (ICD-10 - D25.1) [...] Uterine leiomyoma, unspecified location (ICD-10 - D25.9) 05/17/2023 Other -HRT pellet inserted as documented [...] insertion if any concerns Plan Of Treatment Next Appt Details Provider Name:Tan Blair, 05/15/2024 03:45:00 PM, [address], [place], [address], Provider Name:Tan Pinto, 05/20/2024 02:00:00 PM, [facility], [place], [address], Insurance Providers Payer Name Payer Address Payer Phone Subscriber Number Group Number Insured Name Patient Relationship to Insured Coverage Start Date Coverage End Date [facility] Commercial (Ins. [employer]) [address] [address] [place], [place] [id number] Jody Ha Self - patient is the insured Medical (General) History Medical History History ICD Code Abnormal pap High blood pressure Chicken pox Surgical History Surgery Date(Month/Year) 1988 2001 tubal ligation D&C w/ Hysteroscopy and Myosure Total Laparoscopic hysterect roseann, bilateral salpingoophorectomy, uterosacral ligament suspension, cystoscopy 02/01/24
--- OUTSIDE RECORDS SUMMARY | 2024-05-15 10:29 | XMS_ITS ---
Author Organization [facility] Address [address] [place] [address] Care Team Providers Care Medical Lead Name Role Phone Tan Pinto Primary Care Provider [phone] Allergies No Known Allergies REASON FOR VISIT insert- left side, mammo: 05.06.2024 ( [facility]), BC: hysterectomy, LABS:, KDS,CUSTODIAN SUPERVISOR Medications Medication SIG (Take, Route, Frequency, Duration) Notes Start Date End Date Status Progesterone 200 mg TAKE ONE CAPSULE BY MOUTH AT BEDTIME for 90 days Active amLODIPine Benzoate 10 mg 11/21/2022 Active Indapamide 2.5 MG Oral for 30 Days Not-Taking Vitamin D2 50,000 UNIT 1 tablet Orally O nce a week for 60 days 10/26/2020 Active Losartan Potassium 100 MG 1 tablet Orall y Once a day Active Probiotic Active Vitamin C Active Turmeric Active Flaxseed (Linseed) A ctive HERBAL SUPPLEMENT Ac tive Testosterone Pellets Active Estrogen Pellets Act fer Social History Tobacco Use: Social History Observation Description Date Details (start date - stop date) Current Smoker NA - NA Tobacco Use/Smoking Question Answer Notes Are you a current smoker Encounters Encounter Location Date Provider Diagnosis [facility] [address] [place] [address] 05/12/2024 Tan Pinto Plan Of Treatment Next Appt Details Provider Name:Tan Pinto, 05/15/2024 03:45:00 PM, [address] [place], [address], Provider Name:Tan Pinto, 05/20/2024 02:00:00 PM, [address], [place], [address], Progress Notes * Gadiel RENNERB:1965 ( 58 yo F)Acc No.[id number]:05/12/2024 Patient:?Jody RENNER Provider:?BOSTON Woods :1965???Age:58 Y???Sex:Female D ate:05/12/2024 Address:[address] [place] [address] [address] , [facility] Structured Data:[place] : [place] Subjective: * Chief Complaints: * ???1. Insert- left side. 2. mammo: 05.06.2024 ( [facility]). 3. BC: hysterectomy. 4. LABS:. 5. 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 * Medical History:?Abnormal pa p, High blood pressure, Chicken pox. * Oyster Unloader History:?Date of Last Period:?Hysterectomy,/, Tubal Ligation.? Control: ?Hysterectomy,Menopause, bilateral tubal ligation.?Sexual Activity?currently sexually active,, Heterosexual.?Sexually Tranmitted Disease (STD)?none.? * OB History:?GPAL:?.? # 1:?Primary , Female.? # 2:?1991, vaginal after (), Male.? # 3:?2001, Repeat , Male.? * Surgical History:? 1988, 2001, tubal ligation , D&C w/ Hysteroscopy and Myosure 12/18/2023, Total Laparoscopic hysterectomy, bilateral salpingoophorectomy, uterosacral ligament suspension, cystoscopy 02/01/24. * Hospitalization/Major Diagno stic Procedure:?Denies Past Hospitalization. * Family History:?Father: diag nosed with Hypertension.? * Social History:?Tobacco Use:?Tobacco Use/Smoking?Are you a?current smoker ???Drugs/Alcohol:?Drugs?Have you used drugs other than those for medical reasons in the past 12 months??No ?Caffeine?Intake:?none ?Do you smoke marijuana?: Denies. ?Do you drink alcohol?: Yes, 8-10 month. ???Miscellaneous:?Caffeine: yes, 1 cup per day of coffee. ?Exercise: no. * Medications:?Taking Estrogen Pellets , Taking Testosterone Pellets , Taking Vitamin C , Taking Probiotic , Taking Flaxseed (Linseed) , Taking Turmeric , Taking HERBAL SUPPLEMENT , Taking Vitamin D2 50,000 UNIT Tablet 1 tablet Orally Once a week , Taking Losartan Potassium 100 MG Tablet 1 tablet Orally Once a day , Taking amLODIPine Benzoate , Notes to Pharmacist: 10 mg, Taking Progesterone 200 mg Capsule TAKE ONE CAPSULE BY MOUTH AT BEDTIME , Not-Taking Indapamide 2.5 MG Tablet Oral , Medication List reviewed and reconciled with the patient * Allergies:?N.K.D.A. Objective: * Vitals:? Assessment: Plan: * Treatment: * Preventive Medicine:? ??YOUR PREVENTIVE WELLNESS PLAN:?Breast Cancer Screening (Mammogram):?My last mammogram was done on:?05/01/2023 Normal ?Cervical Cancer Screening (Pap Smear):?My last Pap smear was done on:?04/28/2022 NILM ?Osteoporosis Screening (Bone Density Measurement):?My last bone density was done on:?Never ?Colorectal Cancer Screening:?Last Done Colonoscopy?Never ?Depression Screening:?Screening for depression was last done on:?02/14/2022 * Images: Billing Information: * Visit Code:? * Procedure Codes:? * Electronic signature of Anddes Pinto on 05/15/2024 at 10:28 AM CDT Sign off status: Pending * Provider:?BOSTON Woods Date:?04/22 Generated for Mikel proctor/Doc/Buffy on:?05/15/2024 10:28 AM CDT
--- NOTE | 2024-05-15 10:45 | CRLHL7_ITS ---
For Patients: As a result of the Cures Act, medical imaging exams and procedure reports are released immediately into your electronic medical record. You may view this report before your referring provider. If you have questions, please contact your health care provider. DIGITAL DIAGNOSTIC RIGHT MAMMOGRAM USING TOMOSYNTHESIS AND COMPUTER-AIDED DETECTION RIGHT BREAST ULTRASOUND CLINICAL HISTORY: RIGHT breast mass/asymmetry. COMPARISON: 05/06/2024. TECHNIQUE: Digital RIGHT mammogram in two projections with computer-aided detection. Tomosynthesis was used in this interpretation. Real-time ultrasound imaging of RIGHT breast with imaging documentation. BREAST COMPOSITION: There are areas of scattered fibroglandular density. FINDINGS: 3D spot compression CC/MLO RIGHT breast mammogram images submitted. Nodular density in the lateral breast tissue noted without architectural distortion or suspicious calcification. Targeted RIGHT breast ultrasound performed 9 o`clock 2 cm from the nipple. In this location, there is a simple anechoic cyst measuring 7 x 4 x 4 millimeters. IMPRESSION: Simple cyst RIGHT breast measuring 7 millimeters 9 o`clock 2 cm from the nipple. No evidence of malignancy. RECOMMENDATIONS: Annual bilateral screening mammography. Results and recommendations discussed with the patient. BI-RADS Category 2: Benign Dictated by Elkin Morse MD @ 05/15/2024 11:30:53 AM jj/Dictated by: Elkin Morse MD @ 05/15/2024 11:30:00 AM (Electronically Signed)
--- NOTE | 2024-05-15 11:15 | CRLHL7_ITS ---
For Patients: As a result of the Cures Act, medical imaging exams and procedure reports are released immediately into your electronic medical record. You may view this report before your referring provider. If you have questions, please contact your health care provider. PLEASE SEE DIGITAL DIAGNOSTIC RIGHT MAMMOGRAM PERFORMED THE SAME DAY CRL:chidi murillo/Dictated by: Elkin Morse MD @ 05/15/2024 11:35:00 AM (Electronically Signed)
== END 2024-05-15 10:27 | disposition home or self-care (01) ==
LOC: MAMMO 10:26
PROVIDERS: PCP Family Medicine; Visit Provider Family Medicine
DX: N63.10 Unspecified lump in the right breast, unspecified quadrant (principal); N60.01 Solitary cyst of right breast; R92.8 Other abnormal and inconclusive findings on diagnostic imaging of breast
CPT/HCPCS: 76642; 77065; G0279

== ENCOUNTER 2024-09-08 08:13 | Outpatient (CLI) | payer OTHER, SELFPAY ==
--- OUTSIDE RECORDS SUMMARY | 2024-09-08 08:18 | XMS_ITS | Referral Summary ---
Author Organization [facility] Address [address] [place] [address]. [place] [address] Care Team Providers Care Bowling Ball Engraver Name Role Phone Unavailable Primary Care Provider Unavailabl e Allergies Active Allergy Reactions Criticality Noted Date Comments No Known Allergies 08/04/1999 Medications VITAMIN E CAPS 400 IU ORIndications:Dif fuse cystic mastopathy 1 tab po qday 0 0 0 Active Flaxseed, Linseed, (FLAX SEED OIL) 1000 [...] D, Cholecalciferol, 10 MCG (400 UNIT) TABS Active Turmeric (QC TUMERIC COMPLEX PO) Active progesterone (PROMETRIUM) 200 MG capsule Take 200 mg by mouth daily Active oxyCODONE (ROXICODONE) 5 MG tabletIndications :Status post laparoscopic hysterectomy Take 1-2 tablets (5-10 mg) by mouth every 4 hours as needed for moderate to severe pain 6 tablet 4 Active senna-docusate (SENOKOT-S/BREEZY LACE) 8.6-50 MG tabletIndications :Status post laparoscopic hysterectomy Take 1-2 tablets by mouth 2 times daily 30 tablet 4 Active ondansetron (ZOFRAN ODT) 4 MG ODT tabIndications:St atus post laparoscopic hysterectomy Take 1 tablet (4 mg) by mouth every 8 hours as needed for nausea 4 tablet 4 Active Active Problems Problem Noted Date Diagnosed [...] School Help Needed Not on file 12/17 Comments No Sex and Gender Information Value Date Recorded Sex Assigned at Not on file Legal Sex Female 2:58 AM ELEVATOR RUNNER Gender Identity Not on file Sexual Orientation [...] 160 cm (5' 3) 12/18/2023 12:22 PM ELEVATOR RUNNER Body Mass Index 36.31 12/18/2023 12:22 PM ELEVATOR RUNNER Plan of Treatment Not on file Procedures Procedure Name Priority Date/Time Associated Diagnosis Comments HCL PAP SMEAR Routine 12/08/1999 1:00 PM ELEVATOR RUNNER Gynecologic Examination from Last 3 Months or Most Recently Relevant to Health Maintenance Results * PAP SMEAR (12/08/1999 1:00 PM ELEVATOR RUNNER) Unlabelled DNR [facility] Source DNR [facility] LMP [id number] [facility] Clinical History DNR [facility] Therapy DNR [facility] Last Pap Diagnosis WITHIN NORMAL LIMITS [facility] PAP Date [id number] [facility] Prev Bx Dx DNR [facility] Prev Bx Date DNR [facility] Addl Hx Info [facility] Statement of Adequacy [facility] Comment: SATISFACTORY FOR INTERPRETATION ENDOCERVICAL COMPONENT (COLUMNAR AND/OR METAPLASTIC) IS PRESENT General Categorization DNR [facility] Descriptive Diagnosis [facility] Comment:WITHIN NORMAL LIMITS Recommendations DNR QUES [facility] DNR 125,,,,,, [facility] DNR DNR [facility] DNR DNR [facility] DNR DNR [facility] . [facility] Comment: ?PAP SMEARS ARE SUBJECT TO BOTH FALSE NEGATIVE AND FALSE ? POSITIVE RESULTS EVIDENCED BY DATA PUBLISHED IN THE ? MEDICAL LITERATURE. ??YOUR PATIENT'S RESULT SHOULD BE ? INTERPRETED IN THIS CONTEXT, TOGETHER WITH THE PATIENT'S ? HISTORY AND CLINICAL FINDINGS. TESTING LOCATION ? [facility] ? [address]. [id number] ? PHONE NUMBERS FOR CYTOLOGY INQUIRES, INCLUDING SLIDE REQUESTS ? EXT. [id number] ?? EXT. [id number] 12/07/1999 Leah Chapa MD LABORATORY Final Result [facility] from Last 3 Months or Most Recently Relevant to Health Maintenance Insurance [employer] [facility] [address]
--- OUTSIDE RECORDS SUMMARY | 2024-09-08 08:18 | XMS_ITS | Continuity of Care Document ---
Author Organization [facility] Address [address] [place] [phone] Phone Care Team Providers Care Wafer Cleaner Name Role Phone Will Kingston JANE Unavailable Unavailabl e Advance Directives Directive Yes / No Effective Date File Name No Information Encounters Encounter Description Practice Location Reason(s) For Visit Diagnoses Date Provider Providers Copied on Encounter [facility], [address] [place] [address], [id number], [place] tel:[phone] [facility] No Information Will Kingston. [address] [facility] [place], [id number], [place]. tel:[phone] Family History Family Member Type Diagnosis Age At Onset No Information Payers Payer name Insurance type Covered democrat ID Authoriza tion(s) No Information Social History [...]
--- OUTSIDE RECORDS SUMMARY | 2024-09-08 08:18 | XMS_ITS | Clinical Summary ---
Author Organization [facility] Address [place], [place] [address] Care Team Providers Care Garment Parts Cutter Hand Name Role Phone Ben Jones MD Primary Care Provider [phone] Social History Tobacco Use Types Packs/Day Years Used Date Smoking Tobacco: Never Assessed Sex and Gender Information Value Date Recorded Sex Assigned at Not on file Gender Identity Not on file Sexual Orientation Not on file Plan of Treatment Not on file Care Teams Garment Parts Cutter Hand Relationship Specialty Start Date End Date Ben Jones MD PCP - General Family Practice 12/25/14
--- OUTSIDE RECORDS SUMMARY | 2024-09-08 08:18 | XMS_ITS | Clinical Summary ---
Author Organization [facility] Address [address] [place] [address]. 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 Gender Identity Not on file Sexual Orientation [...] 160 cm (5' 3) 12/18/2023 12:22 PM GRADING MACHINE OPERATOR Body Mass Index 36.31 12/18/2023 12:22 PM GRADING MACHINE OPERATOR Plan of Treatment Health Maintenance Due Date [...] (2 of 2 - PCV) 07/15/2016 07/15/2015 PHQ-2 (once per calendar year) 2023 COVID-19 Vaccine (3 - 2023- season) 2024 02/22/2021, 02/01/2021 INFLUENZA VACCINE (#1) 2024 3, 08/04/2022, 08/26/2021, Additional history exists DTAP/TDAP/TD IMMUNIZATION (3 - Td or Tdap) 05/19/2030 05/19/2020, 07/08/2013, 04/23/1995 RSV VACCINE (1 - 1-dose 75+ series) 2040 ZOSTER IMMUNIZATION Completed 12/12/2021, 1 HPV IMMUNIZATION [...] HCL PAP SMEAR Routine 12/08/1999 1:00 PM GRADING MACHINE OPERATOR Gynecologic Examination from Last 3 Months or Most Recently Relevant to Health Maintenance Results * PAP SMEAR (12/08/1999 1:00 PM GRADING MACHINE OPERATOR) Unlabelled DNR [facility] Source DNR [facility] LMP [id number] [facility] Clinical History DNR [facility] Therapy DNR [facility] Last Pap Diagnosis WITHIN NORMAL LIMITS [facility] PAP Date [id number] [facility] Prev Bx Dx DNR [facility] Prev Bx Date DNR [facility] Addl Hx Info [facility] Statement of Adequacy [facility] Comment: SATISFACTORY FOR INTERPRETATION ENDOCERVICAL COMPONENT (COLUMNAR AND/OR METAPLASTIC) IS PRESENT General Categorization DNR [facility] Descriptive Diagnosis [facility] Comment:WITHIN NORMAL LIMITS Recommendations DNR [facility]UES [facility] DNR 125,,,,,, [facility] [place] DNR DNR [facility] DNR DNR [facility] DNR DNR [facility] . [facility] Comment: ?PAP SMEARS ARE SUBJECT TO BOTH FALSE NEGATIVE AND FALSE ? POSITIVE RESULTS EVIDENCED BY DATA PUBLISHED IN THE ? MEDICAL LITERATURE. ??YOUR PATIENT'S RESULT SHOULD BE ? INTERPRETED IN THIS CONTEXT, TOGETHER WITH THE PATIENT'S ? HISTORY AND CLINICAL FINDINGS. TESTING LOCATION ? [facility] ? [address]. [address] ? PHONE NUMBERS FOR CYTOLOGY INQUIRES, INCLUDING SLIDE REQUESTS ? EXT. [id number] ?? EXT. [id number] 12/07/1999 Leah Chapa MD LABORATORY Final Result Performing Organization Address City/State/[facility] Co de Phone Number [facility] from Last 3 Months or Most Recently Relevant to Health Maintenance Insurance [facility] COMM[employer]CIAL [facility] [employer]
== END 2024-09-08 08:14 | disposition home or self-care (01) ==
PROVIDERS: PCP Family Medicine; Visit Provider Family Medicine
DX: Z00.00 Encounter for general adult medical examination without abnormal findings (principal); I10 Essential (primary) hypertension; Z13.6 Encounter for screening for cardiovascular disorders
CPT/HCPCS: 80048; 80061

== ENCOUNTER 2025-01-29 06:27 | Outpatient (CLI) | payer OTHER, SELFPAY ==
--- NOTE | 2025-01-29 07:52 | P.ANES_ITS ---
Anesthesia Charges Start Date/Time Anesthesia Start Date: 01/29/25 Anesthesia Start Time: 07:15 Stop Date/Time Anesthesia Stop Date: 01/29/25 Anesthesia Stop Time: 07:50 Coding CPT Codes CPT Codes: ANES LWR INTST NDSC NOS - [id number] ([id number]) P3 - PATIENT W/SEVERE SYS DISEASE, QZ - ENERGY CONSERVATION SPECIALIST SVC W/O LAB ANIMAL TECHNICIAN BY
--- NOTE | 2025-01-29 07:52 | W.ANESCHARGE ---
Anesthesia Charges Start Date/Time Anesthesia Start Date: 01/29/25 Anesthesia Start Time: 07:15 Stop Date/Time Anesthesia Stop Date: 01/29/25 Anesthesia Stop Time: 07:50 Coding CPT Codes CPT Codes: ANES LWR INTST NDSC NOS - [id number] ([id number]) P3 - PATIENT W/SEVERE SYS DISEASE, QZ - CERTIFIED REGISTERED NURSE PRACTITIONER SVC W/O DIRECTOR OF BUSINESS CONTINUITY BY
== END 2025-01-29 06:28 | disposition home or self-care (01) ==
LOC: OP CLINIC 06:29
PROVIDERS: PCP Family Medicine; Visit Provider Surgery
DX: Z12.11 Encounter for screening for malignant neoplasm of colon (principal); D12.6 Benign neoplasm of colon, unspecified; D12.0 Benign neoplasm of cecum; D12.3 Benign neoplasm of transverse colon; D12.7 Benign neoplasm of rectosigmoid junction; K57.30 Diverticulosis of large intestine without perforation or abscess without bleeding; Z86.0100 Personal history of colon polyps, unspecified
CPT/HCPCS: 00811; 45380; 45385; 88305; J2704

== ENCOUNTER 2025-07-10 13:06 | Outpatient (CLI) | payer OTHER, SELFPAY ==
--- NOTE | 2025-07-10 13:20 | CRLHL7_ITS ---
For Patients: As a result of the Century Cures Act, medical imaging exams and procedure reports are released immediately into your electronic medical record. You may view this report before your referring provider. If you have questions, please contact your health care provider. INDICATION: BILATERAL SCREENING MAMMOGRAM, ASYMPTOMATIC 60 Y/O FEMALE COMPARISON: , 05/06/2024, 05/01/2023 TECHNIQUE: Digital mammogram in CC and MLO projections including computer-aided detection (CAD) and tomosynthesis. BREAST COMPOSITION: There are scattered areas of fibroglandular density. FINDINGS: No suspicious findings. ASSESSMENT: BI-RADS 1 Negative RECOMMENDATION: Annual screening mammogram. A lay language report of this examination will be provided to the patient. Dictated by: Teressa Coombs MD @ 07/13/2025 20:16:00 (Electronically Signed)
== END 2025-07-10 13:07 | disposition home or self-care (01) ==
LOC: MAMMO 13:06
PROVIDERS: PCP Family Medicine; Visit Provider Nurse Practitioner
DX: Z12.31 Encounter for screening mammogram for malignant neoplasm of breast (principal)
CPT/HCPCS: 77063; 77067